=== PATIENT | female | born 1985 | race Caucasian/White ===

== ENCOUNTER 2020-10-04 17:47 | Emergency (ER) | payer SELFPAY ==
[2020-10-04 18:04] VITALS: TEMP 97.8
[2020-10-04] MEDS ORDERED: SODIUM CHLORIDE 0.9% 500 ML 500 ML IV STA (18:11)
[2020-10-04 18:47] LABS: Basophils % (A) 0 %; Eosinophils # (A) 0.1 k/uL (0-0.7); Eosinophils % (A) 1 %; HCT 37.1 % (34.0-46.0); Lymphocytes # (A) 1.5 k/uL (1.0-4.8); Lymphocytes % (A) 16 %; MCH 28.6 pg (25.0-35.0); MCHC 34.9 g/dL (31.0-37.0); MCV 81.8 fL (80.0-100.0); Mean Platelet Volume 6.7; Monocytes # (A) 0.3 k/uL (0-1.0); Monocytes % (A) 3 %; Neutrophils # (A) 7.4 k/uL (1.3-7.7); Neutrophils % (A) 79 %; Platelet Count 247 k/uL (150-450); RBC 4.54 m/uL (3.80-5.40); WBC 9.3 k/uL (3.8-10.6)
[2020-10-04 18:58] LABS: ALT 24 U/L (4-34); AST 29 U/L (14-36); African American GFR (CKD) >90 (>60 ml/min/1.73 sqM); Albumin 4.2 g/dL (3.5-5.0); Alkaline Phosphatase 53 U/L (38-126); Anion Gap 7 mmol/L; Blood Urea Nitrogen 19 mg/dL (7-17); Calcium 9.1 mg/dL (8.4-10.2); Carbon Dioxide 26 mmol/L (22-30); Chloride 104 mmol/L (98-107); Glucose 125 mg/dL (74-99); Non-African American GFR(CKD) >90 (>60 ml/min/1.73 sqM); Potassium 3.6 mmol/L (3.5-5.1); Sodium 137 mmol/L (137-145); Total Bilirubin 0.2 mg/dL (0.2-1.3); Total Protein 6.8 g/dL (6.3-8.2)
[2020-10-04] MEDS: DIPH,PERTUS(ACELL)TETVAC-LF 0.5 ML VIAL IM ONE ×2 (19:06→19:09)
[2020-10-04 19:12] VITALS: BP 118/81; PULSE 64; RESP 18
--- NOTE | 2020-10-04 19:17 | CT ---
EXAMINATION TYPE: CT facial bones wo con DATE OF EXAM: 10/04/2020 COMPARISON: None HISTORY: fall following syncopal episode CT DLP: 578.3 mGycm Automated exposure control for dose reduction was used. Images obtained from the bottom of the mandible to the top of the frontal sinuses with no contrast. The orbital margins are intact. I see no evidence of a blowout fracture. There is mucosal thickening in the maxillary sinuses. This is worse on the right side. There is patency of the ostiomeatal comple x bilaterally. I see no focal bone destruction. There is no evidence of retro-orbital mass. The maxilla is intact. Zygomatic arches appear normal. The nasal bone is intact. Zygomatic arches michael ear normal. There is normal aeration of the mastoid air cells. The mandibular ring is intact. Temporomandibular joints are intact. IMPRESSION: No evidence of a fracture. Maxillary sinusitis.
--- NOTE | 2020-10-04 19:20 | ED ---
Dizziness HPI - General Chief Complaint: Syncope Stated Complaint: syncope Time Seen by Provider: 10/04/20 18:06 Source: patient Mode of arrival: wheelchair Limitations: no limitations - History of Present Illness Initial Comments: Patient presents after syncopal episode. She did fall over and landed on her face. She sustained an injury to the nose. Patient states that this began after she dropped a knife, which landed on her left foot. She has no trouble walking. She currently has pain only in the nose. She has no neck pain or stiffness. She has no chest pain or shortness of breath. She has no lightheadedness or dizziness. She has no nausea or vomiting. - Related Data Allergies Allergy/AdvReac Type Severity Reaction Status Date / Time amoxicillin [From Augmentin] Allergy Unknown Verified 10/04/20 18:04 azithromycin Allergy Unknown Verified 10/04/20 18:04 clavulanic acid Allergy Unknown Verified 10/04/20 18:04 [From Augmentin] Review of Systems ROS Statement: Those systems with pertinent positive or pertinent negative responses have been documented in the HPI. ROS Other: All systems not noted in ROS Statement are negative. Past Medical History Past Medical History: No Reported History History of Any Multi-Drug Resistant Organisms: None Reported Past Surgical History: Section Past Psychological History: No Psychological Hx Reported Smoking Status: Vaper Past Alcohol Use History: Occasional Past Drug Use History: Marijuana General Exam Limitations: no limitations General appearance: alert, in no apparent distress Head exam: Present: atraumatic, normocephalic, normal inspection Eye exam: Present: normal appearance, PERRL, EOMI. Absent: scleral icterus, conjunctival injection, periorbital swelling ENT exam: Present: normal exam, mucous membranes moist Neck exam: Present: normal inspection. Absent: tenderness, meningismus, ly mphadenopathy Respiratory exam: Present: normal lung sounds bilaterally. Absent: respiratory distress, wheezes, rales, rhonchi, stridor Cardiovascular Exam: Present: regular rate, normal rhythm, normal heart sounds. Absent: systolic murmur, diastolic murmur, rubs, gallop, clicks GI/Abdominal exam: Present: soft, normal bowel sounds. Absent: distended, tenderness, guarding, rebound, rigid Extremities exam: Present: normal inspection, full ROM, normal capillary refill. Absent: tenderness, pedal edema, joint swelling, calf tenderness Back exam: Present: normal inspection Neurological exam: Present: alert, oriented X3, CN II-XII intact Psychiatric exam: Present: normal affect, normal mood Skin exam: Present: warm, dry, intact, normal color. Absent: rash Course Vital Signs 10/04/20 10/04/20 18:01 19:10 Temperature 97.8 F Pulse Rate 73 64 Respiratory 16 18 Rate Blood Pressure 116/75 118/81 O2 Sat by Pulse 100 99 Oximetry EKG Findings - EKG Comments: EKG Findings:: twelve-lead EKG shows ventricular rate 65 bpm, normal [place] interval and QRS complexes, no ST elevation or depression, interpreted by me as normal sinus rhythm. Medical Decision Making - Medical Decision Making Patient presents with a syncopal episode. She had a puncture wound to the left foot, so I updated her tetanus immunization. I recommended a left foot x-ray which the patient declined. She did land on her face, side obtained a CT there which is negative. Her labs are all normal. She is feeling better. She is stable for discharge. - Lab Data Result diagrams: 10/04/20 18:26 10/04/20 18:26 Lab Results 10/04/20 10/04/20 10/04/20 Range/Units 18:26 18:26 18:26 WBC 9.3 (3.8-10.6) k/uL RBC 4.54 (3.80-5.40) m/uL Hgb 13.0 (11.4-16.0) gm/dL Hct 37.1 (34.0-46.0) % MCV 81.8 (80.0-100.0) fL MCH 28.6 (25.0-35.0) pg MCHC 34.9 (31.0-37.0) g/dL RDW 12.0 (11.5-15.5) % Plt Count 247 (150-450) k/uL MPV 6.7 Neutrophils % 79 % Lymphocytes % 16 % Monocytes % 3 % Eosinophils % 1 % Basophils % 0 % Neutrophils # 7.4 (1.3-7.7) k/uL Lymphocytes # 1.5 (1.0-4.8) k/uL Monocytes # 0.3 (0-1.0) k/uL Eosinophils # 0.1 (0-0.7) k/uL Basophils # 0.0 (0-0.2) k/uL Sodium 137 (137-145) mmol/L Potassium 3.6 (3.5-5.1) mmol/L Chloride 104 (98-107) mmol/L Carbon Dioxide 26 (22-30) mmol/L Anion Gap 7 mmol/L BUN 19 H (7-17) mg/dL Creatinine 0.60 (0.52-1.04) mg/dL Est GFR (CKD-EPI)AfAm >90 (>60 ml/min/1.73 sqM) Est GFR (CKD-EPI)NonAf >90 (>60 ml/min/1.73 sqM) Glucose 125 H (74-99) mg/dL Calcium 9.1 (8.4-10.2) mg/dL Total Bilirubin 0.2 (0.2-1.3) mg/dL AST 29 (14-36) U/L ALT 24 (4-34) U/L Alkaline Phosphatase 53 (38-126) U/L Troponin I <0.012 (0.000-0.034) ng/mL Total Protein 6.8 (6.3-8.2) g/dL Albumin 4.2 (3.5-5.0) g/dL Disposition Clinical Impression: Vasovagal syncope Disposition: HOME SELF-CARE Instructions (If sedation given, give patient instructions): Syncope (ED) Is patient prescribed a controlled substance at d/c from ED?: No Referrals: None,Stated [Primary Care Provider] - 1-2 days
== END 2020-10-04 19:35 | disposition home or self-care (01) ==
LOC: EC 17:47
DX: R55 Syncope and collapse (principal); F17.290 Nicotine dependence, other tobacco product, uncomplicated; Z88.1 Allergy status to other antibiotic agents; Z88.0 Allergy status to penicillin
CPT/HCPCS: 36415; 70486; 80053; 84484; 85025; 90715; 93005; 99284

== ENCOUNTER 2021-04-04 20:46 | Emergency (ER) | payer OTHER ==
[2021-04-04 21:00] VITALS: BP 118/79; PULSE 89; RESP 20; TEMP 98.7
[2021-04-04 21:17] LABS: Basophils % (A) 1 %; Eosinophils # (A) 0.3 k/uL (0-0.7); Eosinophils % (A) 4 %; HCT 38.8 % (34.0-46.0); HGB 12.8 gm/dL (11.4-16.0); Lymphocytes # (A) 2.3 k/uL (1.0-4.8); Lymphocytes % (A) 29 %; MCH 28.1 pg (25.0-35.0); MCV 85.1 fL (80.0-100.0); Mean Platelet Volume 7.1; Monocytes # (A) 0.3 k/uL (0-1.0); Monocytes % (A) 4 %; Neutrophils # (A) 4.8 k/uL (1.3-7.7); Neutrophils % (A) 60 %; Platelet Count 277 k/uL (150-450); RBC 4.56 m/uL (3.80-5.40); RDW 12.2 % (11.5-15.5)
[2021-04-04 21:26] LABS: ALT 15 U/L (4-34); AST 16 U/L (14-36); African American GFR (CKD) >90 (>60 ml/min/1.73 sqM); Albumin 4.1 g/dL (3.5-5.0); Alkaline Phosphatase 47 U/L (38-126); Amylase 115 U/L (30-110); Anion Gap 10 mmol/L; Blood Urea Nitrogen 15 mg/dL (7-17); Calcium 9.4 mg/dL (8.4-10.2); Carbon Dioxide 25 mmol/L (22-30); Chloride 104 mmol/L (98-107); Glucose 119 mg/dL (74-99); Lipase 110 U/L (23-300); Non-African American GFR(CKD) >90 (>60 ml/min/1.73 sqM); Potassium 4.1 mmol/L (3.5-5.1); Sodium 139 mmol/L (137-145); Total Bilirubin 0.1 mg/dL (0.2-1.3)
[2021-04-04 21:31] LABS: Appearance,Urine Cloudy (Clear); Bacteria,Urine Rare /hpf; Bilirubin,Urine Negative (Negative); Blood,Urine Negative (Negative); Budding Yeast,Urine Moderate /hpf; Color,Urine Yellow; Glucose,Urine (UA) Negative (Negative); Ketones,Urine Negative (Negative); Leukocyte Esterase,Urine Negative (Negative); Mucus,Urine Rare /hpf; Nitrite,Urine Negative (Negative); PH, Urine 6.5 (5.0-8.0); Protein,Urine Negative (Negative); RBC,Urine 1 /hpf (0-5); Specific Gravity,Urine 1.018 (1.001-1.035); Squamous Epithelial Cell,Urine 14 /hpf (0-4); Urobilinogen,Urine <2.0 mg/dL (<2.0); WBC,Urine 3 /hpf (0-5)
--- NOTE | 2021-04-04 21:42 | XR ---
EXAMINATION TYPE: XR KUB DATE OF EXAM: 04/04/2021 COMPARISON: NONE HISTORY: Abdominal pain TECHNIQUE: Single view FINDINGS: Bowel gas pattern is normal. There is no sign of intestinal obstruction or pneumoperitoneum . Fecal pattern is normal. There is no evidence of a mass. There are no pathologic calcifications ove r the kidneys. IMPRESSION: Nonacute abdomen.
[2021-04-04] MEDS ORDERED: MAG HYDROX/AL HYDROX/SIMETH 30 ML, HYOSCYAMINE ELIXIR 10 ML, LIDOCAINE VISCOUS 2% 10 ML PO STA ×3 (22:33)
--- NOTE | 2021-04-04 22:34 | ED ---
Abdominal Pain HPI - General Chief Complaint: Abdominal Pain Stated Complaint: Pancreatitis Time Seen by Provider: 04/04/21 22:18 Source: patient, RN notes reviewed Mode of arrival: ambulatory Limitations: no limitations - History of Present Illness Initial Comments: 35-year-old female presents emergency dept with chief complaint of upper abdominal pain. Patient states started last couple days. Patient states the burning type pain, increasing reflux. Patient was seen at urgent care and told that she had pancreatitis. Patient states that she has no history of pancreatitis patient denies any dysuria hematuria no prior abdominal surgeries. Patient states her bowel into the normal no dysuria no hematuria. - Related Data Previous Rx's Medication Instructions Recorded Omeprazole [PriLOSEC] 20 mg PO AC-BRKFST #14 cap 04/04/21 Allergies Allergy/AdvReac Type Severity Reaction Status Date / Time amoxicillin [From Augmentin] Allergy Unknown Verified 04/04/21 21:00 azithromycin Allergy Unknown Verified 04/04/21 21:00 clavulanic acid Allergy Unknown Verified 04/04/21 21:00 [From Augmentin] Review of Systems ROS Statement: Those systems with pertinent positive or pertinent negative responses have been documented in the HPI. ROS Other: All systems not noted in ROS Statement are negative. Past Medical History Past Medical History: No Reported History History of Any Multi-Drug Resistant Organisms: None Reported Past Surgical History: Section Past Psychological History: No Psychological Hx Reported Smoking Status: Vaper Past Alcohol Use History: Occasional Past Drug Use History: Marijuana General Exam Limitations: no limitations General appearance: alert, in no apparent distress Head exam: Present: atraumatic, normocephalic, normal inspection Eye exam: Present: normal appearance, PERRL, EOMI. Absent: scleral icterus, conjunctival injection, periorbital swelling Neck exam: Present: normal inspection, full ROM. Absent: tenderness, meningismus, lymphadenopathy Respiratory exam: Present: normal lung sounds bilaterally. Absent: respiratory distress, wheezes, rales, rhonchi, stridor Cardiovascular Exam: Present: regular rate, normal rhythm, normal heart sounds. Absent: systolic murmur, diastolic murmur, rubs, gallop, clicks GI/Abdominal exam: Present: soft, tenderness (Epigastric), normal bowel sounds. Absent: distended, guarding, rebound, rigid Course Vital Signs 04/04/21 20:56 Temperature 98.7 F Pulse Rate 89 Respiratory 20 Rate Blood Pressure 118/79 O2 Sat by Pulse 98 Oximetry Medical Decision Making - Lab Data Result diagrams: 04/04/21 21:07 04/04/21 21:07 Lab Results 04/04/21 04/04/21 04/04/21 Range/Units 21:07 21:07 21:20 WBC 8.0 (3.8-10.6) k/uL RBC 4.56 (3.80-5.40) m/uL Hgb 12.8 (11.4-16.0) gm/dL Hct 38.8 (34.0-46.0) % MCV 85.1 (80.0-100.0) fL MCH 28.1 (25.0-35.0) pg MCHC 33.0 (31.0-37.0) g/dL RDW 12.2 (11.5-15.5) % Plt Count 277 (150-450) k/uL MPV 7.1 Neutrophils % 60 % Lymphocytes % 29 % Monocytes % 4 % Eosinophils % 4 % Basophils % 1 % Neutrophils # 4.8 (1.3-7.7) k/uL Lymphocytes # 2.3 (1.0-4.8) k/uL Monocytes # 0.3 (0-1.0) k/uL Eosinophils # 0.3 (0-0.7) k/uL Basophils # 0.0 (0-0.2) k/uL Sodium 139 (137-145) mmol/L Potassium 4.1 (3.5-5.1) mmol/L Chloride 104 (98-107) mmol/L Carbon Dioxide 25 (22-30) mmol/L Anion Gap 10 mmol/L BUN 15 (7-17) mg/dL Creatinine 0.57 (0.52-1.04) mg/dL Est GFR (CKD-EPI)AfAm >90 (>60 ml/min/1.73 sqM) Est GFR (CKD-EPI)NonAf >90 (>60 ml/min/1.73 sqM) Glucose 119 H (74-99) mg/dL Calcium 9.4 (8.4-10.2) mg/dL Total Bilirubin 0.1 L (0.2-1.3) mg/dL AST 16 (14-36) U/L ALT 15 (4-34) U/L Alkaline Phosphatase 47 (38-126) U/L Total Protein 7.0 (6.3-8.2) g/dL Albumin 4.1 (3.5-5.0) g/dL Amylase 115 H (30-110) U/L Lipase 110 (23-300) U/L Urine Color Yellow Urine Appearance Cloudy H (Clear) Urine pH 6.5 (5.0-8.0) Ur Specific [place] 1.018 (1.001-1.035) Urine Protein Negative (Negative) Urine Glucose (UA) Negative (Negative) Urine Ketones Negative (Negative) Urine Blood Negative (Negative) Urine Nitrite Negative (Negative) Urine Bilirubin Negative (Negative) Urine Urobilinogen <2.0 (<2.0) mg/dL Ur Leukocyte Esterase Negative (Negative) Urine RBC 1 (0-5) /hpf Urine WBC 3 (0-5) /hpf Ur Squamous Epith Cells 14 H (0-4) /hpf Urine Bacteria Rare H (None) /hpf Urine Mucus Rare H (None) /hpf Urine Yeast (Budding) Moderate H (None) /hpf Urine HCG, Qual (Not Detectd) 04/04/21 Range/Units 21:21 WBC (3.8-10.6) k/uL RBC (3.80-5.40) m/uL Hgb (11.4-16.0) gm/dL Hct (34.0-46.0) % MCV (80.0-100.0) fL MCH (25.0-35.0) pg MCHC (31.0-37.0) g/dL RDW (11.5-15.5) % Plt Count (150-450) k/uL MPV Neutrophils % % Lymphocytes % % Monocytes % % Eosinophils % % Basophils % % Neutrophils # (1.3-7.7) k/uL Lymphocytes # (1.0-4.8) k/uL Monocytes # (0-1.0) k/uL Eosinophils # (0-0.7) k/uL Basophils # (0-0.2) k/uL Sodium (137-145) mmol/L Potassium (3.5-5.1) mmol/L Chloride (98-107) mmol/L Carbon Dioxide (22-30) mmol/L Anion Gap mmol/L BUN (7-17) mg/dL Creatinine (0.52-1.04) mg/dL Est GFR (CKD-EPI)AfAm (>60 ml/min/1.73 sqM) Est GFR (CKD-EPI)NonAf (>60 ml/min/1.73 sqM) Glucose (74-99) mg/dL Calcium (8.4-10.2) mg/dL Total Bilirubin (0.2-1.3) mg/dL AST (14-36) U/L ALT (4-34) U/L Alkaline Phosphatase (38-126) U/L Total Protein (6.3-8.2) g/dL Albumin (3.5-5.0) g/dL Amylase (30-110) U/L Lipase (23-300) U/L Urine Color Urine Appearance (Clear) Urine pH (5.0-8.0) Ur Specific [place] (1.001-1.035) Urine Protein (Negative) Urine Glucose (UA) (Negative) Urine Ketones (Negative) Urine Blood (Negative) Urine Nitrite (Negative) Urine Bilirubin (Negative) Urine Urobilinogen (<2.0) mg/dL Ur Leukocyte Esterase (Negative) Urine RBC (0-5) /hpf Urine WBC (0-5) /hpf Ur Squamous Epith Cells (0-4) /hpf Urine Bacteria (None) /hpf Urine Mucus (None) /hpf Urine Yeast (Budding) (None) /hpf Urine HCG, Qual Not Detected (Not Detectd) Disposition Clinical Impression: Abdominal pain Disposition: HOME SELF-CARE Condition: Stable Instructions (If sedation given, give patient instructions): Abdominal Pain (ED) Additional Instructions: Please return to the Emergency Department if symptoms worsen or any other concerns. Prescriptions: Omeprazole [PriLOSEC] 20 mg PO AC-BRKFST #14 cap Is patient prescribed a controlled substance at d/c from ED?: No Referrals: None,Stated [Primary Care Provider] - 1-2 days Time of Disposition: 22:45
[2021-04-04] MEDS ORDERED: ONDANSETRON 4 MG/2 ML VIAL IVP STA (22:44)
[2021-04-04] MEDS ORDERED: HYDROmorphone 0.5 MG/0.5 ML SYRINGE IVP STA (22:44)
[2021-04-04] MEDS ORDERED: ACET/COD 300 MG/30 MG STARTER PACK 6 TAB BTL PO PRN (23:40)
[2021-04-04] MEDS ORDERED: ACET/COD 300 MG/30 MG STARTER PACK 6 TAB BTL PO ONE (23:40)
--- NOTE | 2021-04-05 04:10 | CT ---
EXAM: CT Abdomen and Pelvis With Intravenous Contrast CLINICAL HISTORY: abd pain, hx of pancreatitis TECHNIQUE: Axial computed tomography images of the abdomen and pelvis with intravenous contrast. CTDI is 15.97 mGy and DLP is 655.5 mGy-cm. This CT exam was performed using one or more of the following dose reduction techniques: automated exposure control, adjustment of the mA and/or kV according to patient size, and/or use of iterative reconstruction technique. COMPARISON: No relevant prior studies available. FINDINGS: Lung bases: Dependent atelectasis. ABDOMEN: Liver: Borderline hepatomegaly. Gallbladder and bile ducts: Unremarkable. Pancreas: Unremarkable. Spleen: Unremarkable. Adrenals: Unremarkable. Kidneys and ureters: Unremarkable. Stomach and bowel: Unremarkable. PELVIS: Appendix: Appendix is unremarkable. Bladder: Unremarkable. Reproductive: Unremarkable as visualized. ABDOMEN and PELVIS: Intraperitoneal space: Unremarkable. Bones/joints: No acute fracture. No dislocation. Soft tissues: Unremarkable. Vasculature: Unremarkable. Lymph nodes: Unremarkable. IMPRESSION: No acute findings in the abdomen or pelvis.
== END 2021-04-05 00:18 | disposition home or self-care (01) ==
LOC: EC 20:46
DX: R10.10 Upper abdominal pain, unspecified (principal); F17.290 Nicotine dependence, other tobacco product, uncomplicated; Z88.1 Allergy status to other antibiotic agents; Z88.0 Allergy status to penicillin
CPT/HCPCS: 36415; 80053; 82150; 83690; 85025; 81001; 81025; 74018; 99284; 96374; 96375; J2405; J1170; 12002; 74177

== ENCOUNTER 2022-04-04 09:21 | Observation (INO) | payer BC, OTHER ==
[2022-04-04] MEDS ORDERED: ACETAMINOPHEN TAB 325 MG TAB PO STA (09:43)
[2022-04-04] MEDS ORDERED: SODIUM CHLORIDE 0.9% 500 ML 500 ML IV STA (09:43)
--- NOTE | 2022-04-04 09:50 | ED ---
Female Urogenital HPI - General Chief complaint: Urogenital Stated complaint: urogenital Time Seen by Provider: 04/04/22 09:27 Source: patient, RN notes reviewed, old records reviewed Mode of arrival: ambulatory Limitations: no limitations - History of Present Illness Initial comments: This is a nontoxic appearing 36-year-old female that presents to the emergency room with complaints of dysuria, right lower abdominal pain and vaginal bleeding. Patient states that she was hospitalized for these same symptoms at [facility] last week for 3 days for urinary tract infection. She states she is 6 weeks however they were unable to determine the location of the . They told her they believe she has a kidney stone which was causing her discomfort. Patient states that she's continued to have intermittent vaginal bleeding with hematuria with worsening pain. She did finish the antibiotics that were prescribed at discharge. 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 She also has a history of mu ltiple kidney stones. She has an appointment with her BERRY PICKER scheduled first week of April, a high risk doctor. She was not given referral to urology but has been straining her urine with no evidence of stone. MD Complaint: vaginal bleeding, dysuria, pelvic pain -: week(s) (2) Location: suprapubic Radiation: R flank, other (right groin) Severity scale (1-10): 6 Quality: sharp Consistency: constant Improves with: none Patient : Yes - Related Data Home Medications Medication Instructions Recorded Confirmed Acetaminophen-Codeine 300-30mg 2 tab PO Q6H PRN 04/04/22 04/04/22 [Tylenol w/codeine #3] Progesterone, Micronized 200 mg PO DAILY 04/04/22 04/04/22 [Progesterone] Tamsulosin HCl [Flomax] 0.4 mg PO DAILY 04/04/22 04/04/22 ondansetron HCL [Zofran] 8 mg PO Q8H PRN 04/04/22 04/04/22 Allergies Allergy/AdvReac Type Severity Reaction Status Date / Time amoxicillin [From Augmentin] Allergy Unknown Verified 04/04/22 12:15 azithromycin Allergy Unknown Verified 04/04/22 12:15 clavulanic acid Allergy Unknown Verified 04/04/22 12:15 [From Augmentin] latex Allergy Swelling Verified 04/04/22 12:15 Review of Systems ROS Statement: Those systems with pertinent positive or pertinent negative responses have been documented in the HPI. ROS Other: All systems not noted in ROS Statement are negative. Past Medical History Past Medical History: No Reported History History of Any Multi-Drug Resistant Organisms: None Reported Past Surgical History: Section Past Psychological History: No Psychological Hx Reported Smoking Status: Vaper Past Alcohol Use History: Occasional Past Drug Use History: Marijuana General Exam Limitations: no limitations General appearance: alert, in no apparent distress Head exam: Present: atraumatic Eye exam: Absent: scleral icterus, conjunctival injection, periorbital swelling ENT exam: Present: mucous membranes moist Neck exam: Present: full ROM Respiratory exam: Present: normal lung sounds bilaterally. Absent: respiratory distress, wheezes, rales, rhonchi, stridor, chest wall tenderness, accessory muscle use Cardiovascular Exam: Present: tachycardia GI/Abdominal exam: Present: soft. Absent: distended, tenderness, rigid External exam: Present: normal external exam. Absent: erythema, swelling, lacerations, ecchymosis Speculum exam: Present: vaginal bleeding. Absent: cervical discharge, foreign body, tissue, laceration By manual exam: Present: normal by manual exam, adnexal tenderness (right). Absent: cervical motion tenderness Extremities exam: Present: normal capillary refill. Absent: pedal edema Back exam: Absent: CVA tenderness (R), CVA tenderness (L), rash noted Neurological exam: Present: alert, oriented X3 Psychiatric exam: Present: normal affect, normal mood Skin exam: Present: warm, dry. Absent: cyanosis, pallor Course Vital Signs 04/04/22 04/04/22 04/04/22 09:21 12:12 12:18 Temperature 98.3 F 98 F 98.9 F Pulse Rate 103 H 71 Pulse Rate [ 91 Pulse Oximetery ] Respiratory 18 16 16 Rate Blood Pressure 114/65 128/78 Blood Pressure 115/62 [Left Arm] O2 Sat by Pulse 99 98 99 Oximetry - Reevaluation(s) Reevaluation #1: 04/04/22 11:19 Dr. Manrique radiologist that confirms a right ectopic . Dr. Ash turcios. Time: 11:19 Reevaluation #2: 04/04/22 11:[address] Aleman regarding ultrasound results showing ectopic . States that she will be in to take patient to surgery. Time: 11:27 Medical Decision Making - Medical Decision Making Labs brought by patient from [facility] dated March 28 show HCG 800. Patient's presenting with continued right-sided abdominal/groin pain with vaginal bleeding. States feels like her previous ectopic pregnancies. Patient is a . Last ectopic treated with methotrexate [address] [facility]. She has had a successful since and has a 3-year-old and a 7-year-old child. Hemoglobin 12.9, hematocrit 36.6. HCG 5055. Ultrasound interpreted by me shows evidence of an ectopic in the right adnexa. Dr. Manrique the radiologist did confirm a live right-sided ectopic presumed within the fallopian tube with a heart rate of 116. Mean crown-rump length 0.5 cm corresponding to 6 week 2 day old fetus. No free fluid in the cul-de-sac. No gestational sac or yolk sac or pole at this time. I did speak with Dr. Aleman regarding ectopic and states she will come in to see patient with likely OR intervention. Patient was notified of the results. Patient was given multiple doses of pain medication. Second IV was ordered. Vital signs are stable. Records were eventually obtained from [facility] from her visit on March 27, their impression by ultrasound was no evidence of intrauterine , findings could be due to early IUP, nonvisualized ectopic or missed . Fluid is seen within the posterior cul-de-sac. Case discussed with Dr. Lei. - Lab Data Result diagrams: 04/04/22 10:11 04/04/22 10:11 Lab Results 04/04/22 04/04/22 04/04/22 Range/Units 10:11 10:11 10:11 WBC 8.7 (3.8-10.6) k/uL RBC 4.45 (3.80-5.40) m/uL Hgb 12.9 (11.4-16.0) gm/dL Hct 36.6 (34.0-46.0) % MCV 82.3 (80.0-100.0) fL MCH 29.0 (25.0-35.0) pg MCHC 35.3 (31.0-37.0) g/dL RDW 12.4 (11.5-15.5) % Plt Count 231 (150-450) k/uL MPV 7.3 Neutrophils % 79 % Lymphocytes % 13 % Monocytes % 4 % Eosinophils % 2 % Basophils % 0 % Neutrophils # 6.9 (1.3-7.7) k/uL Lymphocytes # 1.2 (1.0-4.8) k/uL Monocytes # 0.3 (0-1.0) k/uL Eosinophils # 0.2 (0-0.7) k/uL Basophils # 0.0 (0-0.2) k/uL Sodium (137-145) mmol/L Potassium (3.5-5.1) mmol/L Chloride (98-107) mmol/L Carbon Dioxide (22-30) mmol/L Anion Gap mmol/L BUN (7-17) mg/dL Creatinine (0.52-1.04) mg/dL Est GFR (CKD-EPI)AfAm (>60 ml/min/1.73 sqM) Est GFR (CKD-EPI)NonAf (>60 ml/min/1.73 sqM) Glucose (74-99) mg/dL Calcium (8.4-10.2) mg/dL Total Bilirubin (0.2-1.3) mg/dL AST (14-36) U/L ALT (4-34) U/L Alkaline Phosphatase (38-126) U/L Lactate Dehydrogenase (313-618) U/L Total Protein (6.3-8.2) g/dL Albumin (3.5-5.0) g/dL Amylase (30-110) U/L Lipase (23-300) U/L HCG, Quant mIU/mL Urine Color Light Yellow Urine Appearance Cloudy H (Clear) Urine pH 6.0 (5.0-8.0) Ur Specific [place] 1.008 (1.001-1.035) Urine Protein Negative (Negative) Urine Glucose (UA) Negative (Negative) Urine Ketones Negative (Negative) Urine Blood Large H (Negative) Urine Nitrite Negative (Negative) Urine Bilirubin Negative (Negative) Urine Urobilinogen <2.0 (<2.0) mg/dL Ur Leukocyte Esterase Negative (Negative) Urine RBC 1 (0-5) /hpf Urine WBC 2 (0-5) /hpf Ur Squamous Epith Cells 6 H (0-4) /hpf Urine Bacteria Rare H (None) /hpf Urine Mucus Rare H (None) /hpf Urine HCG, Qual Detected (Not Detectd) 04/04/22 Range/Units 10:11 WBC (3.8-10.6) k/uL RBC (3.80-5.40) m/uL Hgb (11.4-16.0) gm/dL Hct (34.0-46.0) % MCV (80.0-100.0) fL MCH (25.0-35.0) pg MCHC (31.0-37.0) g/dL RDW (11.5-15.5) % Plt Count (150-450) k/uL MPV Neutrophils % % Lymphocytes % % Monocytes % % Eosinophils % % Basophils % % Neutrophils # (1.3-7.7) k/uL Lymphocytes # (1.0-4.8) k/uL Monocytes # (0-1.0) k/uL Eosinophils # (0-0.7) k/uL Basophils # (0-0.2) k/uL Sodium 137 (137-145) mmol/L Potassium 4.5 (3.5-5.1) mmol/L Chloride 106 (98-107) mmol/L Carbon Dioxide 22 (22-30) mmol/L Anion Gap 9 mmol/L BUN 13 (7-17) mg/dL Creatinine 0.51 L (0.52-1.04) mg/dL Est GFR (CKD-EPI)AfAm >90 (>60 ml/min/1.73 sqM) Est GFR (CKD-EPI)NonAf >90 (>60 ml/min/1.73 sqM) Glucose 162 H (74-99) mg/dL Calcium 8.7 (8.4-10.2) mg/dL Total Bilirubin 0.6 (0.2-1.3) mg/dL AST 23 (14-36) U/L ALT 41 H (4-34) U/L Alkaline Phosphatase 52 (38-126) U/L Lactate Dehydrogenase 493 (313-618) U/L Total Protein 6.6 (6.3-8.2) g/dL Albumin 3.9 (3.5-5.0) g/dL Amylase 53 (30-110) U/L Lipase 132 (23-300) U/L HCG, Quant 5055.1 mIU/mL Urine Color Urine Appearance (Clear) Urine pH (5.0-8.0) Ur Specific [place] (1.001-1.035) Urine Protein (Negative) Urine Glucose (UA) (Negative) Urine Ketones (Negative) Urine Blood (Negative) Urine Nitrite (Negative) Urine Bilirubin (Negative) Urine Urobilinogen (<2.0) mg/dL Ur Leukocyte Esterase (Negative) Urine RBC (0-5) /hpf Urine WBC (0-5) /hpf Ur Squamous Epith Cells (0-4) /hpf Urine Bacteria (None) /hpf Urine Mucus (None) /hpf Urine HCG, Qual (Not Detectd) Critical Care Time Critical Care Time: Yes (32) Disposition Clinical Impression: Ectopic Disposition: ADMITTED IP TO THIS [facility] Referrals: None,Stated [Primary Care Provider] - 1-2 days Decision Date: 04/04/22 Decision Time: 11:42
[2022-04-04 10:21] LABS: Basophils % (A) 0 %; Eosinophils # (A) 0.2 k/uL (0-0.7); Eosinophils % (A) 2 %; HCT 36.6 % (34.0-46.0); HGB 12.9 gm/dL (11.4-16.0); Lymphocytes # (A) 1.2 k/uL (1.0-4.8); Lymphocytes % (A) 13 %; MCHC 35.3 g/dL (31.0-37.0); MCV 82.3 fL (80.0-100.0); Mean Platelet Volume 7.3; Monocytes # (A) 0.3 k/uL (0-1.0); Monocytes % (A) 4 %; Neutrophils # (A) 6.9 k/uL (1.3-7.7); Neutrophils % (A) 79 %; Platelet Count 231 k/uL (150-450); RBC 4.45 m/uL (3.80-5.40); RDW 12.4 % (11.5-15.5); WBC 8.7 k/uL (3.8-10.6)
[2022-04-04 10:26] LABS: Appearance,Urine Cloudy (Clear); Bacteria,Urine Rare /hpf; Bilirubin,Urine Negative (Negative); Blood,Urine Large (Negative); Color,Urine Light Yellow; Glucose,Urine (UA) Negative (Negative); Ketones,Urine Negative (Negative); Leukocyte Esterase,Urine Negative (Negative); Mucus,Urine Rare /hpf; Nitrite,Urine Negative (Negative); Protein,Urine Negative (Negative); RBC,Urine 1 /hpf (0-5); Specific Gravity,Urine 1.008 (1.001-1.035); Squamous Epithelial Cell,Urine 6 /hpf (0-4); Urobilinogen,Urine <2.0 mg/dL (<2.0); WBC,Urine 2 /hpf (0-5)
[2022-04-04 10:37] LABS: ALT 41 U/L (4-34); African American GFR (CKD) >90 (>60 ml/min/1.73 sqM); Albumin 3.9 g/dL (3.5-5.0); Amylase 53 U/L (30-110); Anion Gap 9 mmol/L; Blood Urea Nitrogen 13 mg/dL (7-17); Calcium 8.7 mg/dL (8.4-10.2); Carbon Dioxide 22 mmol/L (22-30); Chloride 106 mmol/L (98-107); Glucose 162 mg/dL (74-99); LDH 493 U/L (313-618); Lipase 132 U/L (23-300); Non-African American GFR(CKD) >90 (>60 ml/min/1.73 sqM); Sodium 137 mmol/L (137-145); Total Bilirubin 0.6 mg/dL (0.2-1.3); Total Protein 6.6 g/dL (6.3-8.2)
[2022-04-04 10:38] LABS: Potassium 4.5 mmol/L (3.5-5.1)
[2022-04-04 10:39] LABS: AST 23 U/L (14-36); Alkaline Phosphatase 52 U/L (38-126)
[2022-04-04 10:52] LABS: HCG,Quantitative Serum 5055.1 mIU/mL
[2022-04-04] MEDS ORDERED: MORPHINE SULFATE 4 MG/ML SYRINGE IVP STA ×2 (11:02→11:26)
[2022-04-04] MEDS ORDERED: SODIUM CHLORIDE 0.9% 500 ML 500 ML IV ONE (11:04)
[2022-04-04] MEDS ORDERED: SODIUM CHLORIDE 0.9% 1,000 ML IV SCH (11:15)
--- NOTE | 2022-04-04 11:18 | US ---
EXAMINATION TYPE: Transabdominal DATE OF EXAM: 04/04/2022 10:47 AM COMPARISON: NONE CLINICAL HISTORY: r/o ectopic. UTI. Vaginal bleeding. right pelvic pain. Positive beta hCG test. Hist ory of ectopic . EXAM PERFORMED: Transvaginal (TV) and Transabdominal (TA) EXAM MEASUREMENTS: GESTATIONAL AGE / DATING Physician Established: Not yet established Dates by LMP: (7 weeks/0 days) EDC: 11/21/22 Dates by First Scan: No previous this is first scan Dates by Current Scan for: (6 weeks/2 days) - right adnexa EDC: 11/26/22 MATERNAL ANATOMY Uterus: 8.4 x 4.4 x 5.5cm Right Ovary: 3.5 x 2.7 x 1.7cm Left Ovary: 3.1 x 1.4 x 1.4cm Post CDS / Adnexa: mass-like area right adnexa = 2.9 x 1.9 x 2.5cm with yolk sac and pole ident ified - suggestive of ectopic Presence of free fluid: no GESTATION / SURVEY LOCATED WITHIN RIGHT ADNEXAL MASS CRL: 0.5cm (6 weeks/2 days) Yolk Sac (normal less than 6mm): 0.3cm Heart Rate: 116 bpm Rhythm: Normal IUP: Viable IUP Date of LMP: 02/14/22 Beta HcG (if available): Not available at this time Heterogeneous anteverted uterus with thickened endometrium up to 13 mm. No gestational sac, yolk sac, or pole at this level. No free fluid in pelvic cul-de-sac. Both ovaries are identified. Within the right adnexa and there is documentation of single live intrau terine gestation as gestational sac, yolk sac, pole are present. Mean crown-rump length is 0.5 cm corresponding to 6 week 2 day old fetus. IMPRESSION: Confirmation of live right-sided ectopic presumed within the fallopian tube as detailed above. Critical results communicated to ordering ER physician via telephone at time of dictation.
--- NOTE | 2022-04-04 12:09 | P.HPOB ---
History of Present Illness H&P Date: 04/04/22 Chief Complaint: ectopic 36-year-old G 17 P2 presents with a 6 week gestational sac in her right fallopian tube. She presented to the emergency room complaining of right lower quadrant pain and spotting. Beta hCG is 5000 and irises 6 week gestational sac with a pole noted. Patient has had an ectopic in this fallopian tube before and was treated with methotrexate. I consented the patient for a laparoscopic salpingectomy and removal of ectopic . Review of Systems All systems: negative Constitutional: Denies chills, Denies fever Eyes: denies blurred vision, denies pain Ears, nose, mouth and throat: Denies headache, Denies sore throat Cardiovascular: Denies chest pain, Denies shortness of breath Respiratory: Denies cough Gastrointestinal: Denies abdominal pain, Denies diarrhea, Denies nausea, Denies vomiting Genitourinary: Denies dysuria, Denies hematuria Musculoskeletal: Denies myalgias Integumentary: Denies pruritus, Denies rash Neurological: Denies numbness, Denies weakness Psychiatric: Denies anxiety, Denies depression Endocrine: Denies fatigue, Denies weight change Past Medical History Past Medical History: No Reported History Additional Past Medical History / Comment(s): Obstetric history: She's had 2 live births, she's had one ectopic in the right fallopian tube for which she was treated with methotrexate. She also had a molar and a 17 week demise as well as several miscarriages. History of Any Multi-Drug Resistant Organisms: None Reported Past Surgical History: Section Past Psychological History: No Psychological Hx Reported Smoking Status: Vaper Past Alcohol Use History: Occasional Past Drug Use History: Marijuana Medications and Allergies Home Medications Medication Instructions Recorded Confirmed Type Omeprazole [PriLOSEC] 20 mg PO AC-BRKFST #14 cap 04/04/21 Rx Allergies Allergy/AdvReac Type Severity Reaction Status Date / Time amoxicillin [From Augmentin] Allergy Unknown Verified 04/04/22 12:05 azithromycin Allergy Unknown Verified 04/04/22 12:05 clavulanic acid Allergy Unknown Verified 04/04/22 12:05 [From Augmentin] latex Allergy Swelling Verified 04/04/22 12:05 Exam Osteopathic Statement: *. No significant issues noted on an osteopathic structural exam other than those noted in the History and Physical/Consult. Vital Signs Temp Pulse Resp BP Pulse Ox 04/04/22 09:21 98.3 F 103 H 18 114/65 99 Intake and Output 04/03/22 04/04/22 04/04/22 22:59 06:59 14:59 Other: Weight 61.689 kg Heart: Regular rate and rhythm Lungs: Clear to auscultation bilaterally Abdomen: Soft, very tender on the right lower quadrant, minimally distended Extremities: Negative Homans sign Results Result Diagrams: 04/04/22 10:11 04/04/22 10:11 Abnormal Lab Results - Last 24 Hours (Table) 04/04/22 04/04/22 Range/Units 10:11 10:11 Creatinine 0.51 L (0.52-1.04) mg/dL Glucose 162 H (74-99) mg/dL ALT 41 H (4-34) U/L Urine Appearance Cloudy H (Clear) Urine Blood Large H (Negative) Ur Squamous Epith Cells 6 H (0-4) /hpf Urine Bacteria Rare H (None) /hpf Urine Mucus Rare H (None) /hpf Assessment and Plan (1) Ectopic Current Visit: Yes Status: Acute Code(s): O00.90 - UNSPECIFIED ECTOPIC WITHOUT INTRAUTERINE SNOMED Code(s): 26465991 Plan: 1. Laparoscopic salpingectomy with removal of ectopic and possible laparotomy
[2022-04-04] MEDS ORDERED: IV FLUID CONTINUATION 500 ML IV ONE (12:20)
[2022-04-04] MEDS ORDERED: ROCURONIUM 10 MG/ML (5 ML VIAL) IV ONE (12:27)
[2022-04-04] MEDS ORDERED: PROPOFOL 10 MG/ML 20 ML VIAL IV ONE (12:27)
[2022-04-04] MEDS ORDERED: ONDANSETRON 4 MG/2 ML VIAL ONE (12:27)
[2022-04-04] MEDS ORDERED: NEOSTIGMINE 1 MG/ML 10 ML VIAL ONE (12:27)
[2022-04-04] MEDS ORDERED: SUCCINYLCHOLINE CHLORIDE 200 MG/10 ML VIAL IV ONE (12:27)
[2022-04-04] MEDS ORDERED: MIDAZOLAM 2 MG/2 ML VIAL ONE (12:27)
[2022-04-04] MEDS ORDERED: DEXAMETHASONE SOD PHOSPHATE 10 MG/ML 1 ML VIAL ONE (12:27)
[2022-04-04] MEDS ORDERED: GLYCOPYRROLATE 0.2 MG/ML 2 ML VIAL ONE (12:27)
[2022-04-04] MEDS ORDERED: fentaNYL (PF) 50 MCG/ML 2 ML AMP ONE (12:27)
[2022-04-04] MEDS ORDERED: KETOROLAC 15 MG/ML 1 ML VIAL ONE (12:27)
[2022-04-04] MEDS ORDERED: LIDOCAINE 2% INJ 20 MG/ML (2 ML VIAL) ONE (12:27)
[2022-04-04] MEDS ORDERED: NALOXONE 0.4 MG/ML 1 ML VIAL IV PRN (12:29)
[2022-04-04] MEDS ORDERED: SODIUM CHLORIDE 0.9% 50 ML with ceFAZolin 2,000 MG IV ONE ×2 (12:44)
[2022-04-04] MEDS ORDERED: BUPIVACAINE (PF) 0.25% 30 ML VIAL SQ ONE ×2 (12:48)
[2022-04-04] MEDS ORDERED: LACTATED RINGERS 1,000 ML IV ONE (13:05)
[2022-04-04] MEDS ORDERED: HYDROmorphone 0.5 MG/0.5 ML SYRINGE IVP ONE (13:33)
[2022-04-04 14:27] VITALS: RESP 16
[2022-04-04 15:27] LABS: Appearance,Urine Clear (Clear); Bilirubin,Urine Negative (Negative); Blood,Urine Negative (Negative); Color,Urine Colorless; Glucose,Urine (UA) Negative (Negative); Ketones,Urine Negative (Negative); Leukocyte Esterase,Urine Negative (Negative); Nitrite,Urine Negative (Negative); Protein,Urine Negative (Negative); Specific Gravity,Urine 1.009 (1.001-1.035); Urobilinogen,Urine <2.0 mg/dL (<2.0)
[2022-04-04] MEDS ORDERED: IBUPROFEN 800 MG TAB PO PRN (17:01)
[2022-04-04] MEDS ORDERED: HYDROcodone/APAP 7.5-325MG 1 EACH TAB PO PRN (17:01)
--- NOTE | 2022-04-04 17:07 | P.OP ---
Date of Procedure: 04/04/22 Preoperative Diagnosis: 1. Ectopic in the right fallopian tube Postoperative Diagnosis: 1. Ruptured ectopic in the right fallopian tube Procedure(s) Performed: Laparoscopic right salpingectomy and removal of ectopic Anesthesia: RAMY Surgeon: Jaquelin Aleman Estimated Blood Loss (ml): 3 IV fluids (ml): 1,000 Urine output (ml): 100 Pathology: other (Segment of right fallopian tube with ectopic) Condition: stable Disposition: PACU Operative Findings: Ectopic in the right fallopian tube and minimal blood in the pelvis there was a small hole in the right fallopian tube but no active bleeding. Description of Procedure: Patient is taken the operating room and general anesthesia was obtained without difficulty. She prepped draped in normal sterile fashion dorsal lithotomy position, legs placed in the Filiberto stirrups. Bladder was drained of all urine. Weighted speculum place in vagina and the anterior lip of cervix was grasped with tooth tenaculum. Uterus was sounded to 9 cm. The kroner manipulator was then placed. Attention was then turned to the abdomen and gloves were changed. A 10 mm and for local incision was made with scalpel and 10 mm optical trocar was placed under direct visualization. A 10 mm suprapubic incision was made with scalpel and a 10 mm optical trocar was placed under direct visualization. Survey of the pelvis revealed normal appearing uterus normal left fallopian tube and ovary the right fallopian tube was engorged and inflamed with a small hole that did have blood on it but was not actively bleeding, normal right ovary. A 5 mm incision was made in the right lower quadrant and a optical trocar was placed under direct visualization. The fallopian tube was grasped with a grasper and the LigaSure was used to clamp seal and cut the mesosalpinx to remove the fallopian tube. The fallopian tubes and placement 10 bag and pulled through the suprapubic incision. Hemostasis was assured. All instruments were removed from the abdomen and pelvis. The incisions were closed with 4-0 Vicryl subcu cuticular fashion. Patient procedure well, sponge initial counts correct 2. She was taken to recovery in stable condition.
[2022-04-04 17:21] VITALS: TEMP 97.8
[2022-04-04 17:40] VITALS: BP 115/68; PULSE 73
== END 2022-04-04 18:40 | disposition home or self-care (01) ==
LOC: EC 09:21 → 6NMEDSUR 12:43 → 4FBP 13:36
PROVIDERS: ADMIT Obstetrics & Gynecology; ATTEND Obstetrics & Gynecology
DX: O00.101 Right tubal pregnancy without intrauterine pregnancy (principal); O23.41 Unspecified infection of urinary tract in pregnancy, first trimester; N39.0 Urinary tract infection, site not specified; Z87.442 Personal history of urinary calculi; Z79.899 Other long term (current) drug therapy; Z88.1 Allergy status to other antibiotic agents; Z91.040 Latex allergy status; Z32.01 Encounter for pregnancy test, result positive; Z3A.01 Less than 8 weeks gestation of pregnancy
CPT/HCPCS: 96376; 96361; 96374; 99291; 36415; 86900; 86901; 88305; 80053; 82150; 83615; 83690; 85025; 86850; 81003; 81001; 81025; 84702; 87086; 76801; 76817; 59151; G0378 ×2; J2250; J0330; J2270; J1100; J2710; J2405; J0690; J3010; J1885; J2704; J1170; J1790; J2001

== ENCOUNTER 2022-10-20 11:09 | Emergency (ER) | payer OTHER ==
[2022-10-20 11:13] VITALS: TEMP 98
[2022-10-20] MEDS ORDERED: SODIUM CHLORIDE 0.9% 1,000 ML IV STA (11:17)
[2022-10-20] MEDS ORDERED: ONDANSETRON 4 MG/2 ML VIAL IVP STA (11:32)
[2022-10-20] MEDS ORDERED: KETOROLAC 15 MG/ML 1 ML VIAL IVP STA (11:32)
[2022-10-20 11:48] LABS: WBC 4.6 k/uL (3.8-10.6)
[2022-10-20 11:49] LABS: Basophils % (A) 0 %; Eosinophils # (A) 0.1 k/uL (0-0.7); Eosinophils % (A) 3 %; HCT 39.8 % (34.0-46.0); Lymphocytes # (A) 1.2 k/uL (1.0-4.8); Lymphocytes % (A) 26 %; MCH 28.3 pg (25.0-35.0); MCHC 35.3 g/dL (31.0-37.0); MCV 80.2 fL (80.0-100.0); Mean Platelet Volume 7.6; Monocytes # (A) 0.2 k/uL (0-1.0); Monocytes % (A) 4 %; Neutrophils # (A) 2.9 k/uL (1.3-7.7); Neutrophils % (A) 64 %; Platelet Count 248 k/uL (150-450); RBC 4.97 m/uL (3.80-5.40); RDW 12.5 % (11.5-15.5)
--- NOTE | 2022-10-20 11:54 | XR ---
EXAMINATION TYPE: XR KUB DATE OF EXAM: 10/20/2022 COMPARISON: NONE HISTORY: Pain TECHNIQUE: Single supine KUB image of the abdomen is obtained FINDINGS: Small bowel demonstrates no evidence for dilatation or air fluid levels. Gas and fecal material is seen in non-distended colon. No convincing evidence for pneumoperitoneum. No unusual calcifications. Correlate for hepatomegaly versus Jeremie's lobe. The lung bases are clear. The osseous structures are intact. IMPRESSION: 1. Overall nonobstructive bowel gas pattern.
[2022-10-20 11:55] LABS: Appearance,Urine Cloudy (Clear); Bacteria,Urine Rare /hpf; Bilirubin,Urine Negative (Negative); Blood,Urine Large (Negative); Color,Urine Yellow; Glucose,Urine (UA) Negative (Negative); Ketones,Urine Negative (Negative); Leukocyte Esterase,Urine Small (Negative); Mucus,Urine Occasional /hpf; Nitrite,Urine Negative (Negative); Protein,Urine Negative (Negative); RBC,Urine 4 /hpf (0-5); Specific Gravity,Urine 1.013 (1.001-1.035); Squamous Epithelial Cell,Urine 5 /hpf (0-4); Urobilinogen,Urine <2.0 mg/dL (<2.0); WBC,Urine 5 /hpf (0-5)
[2022-10-20 12:01] LABS: ALT 18 U/L (4-34); AST 18 U/L (14-36); African American GFR (CKD) >90 (>60 ml/min/1.73 sqM); Albumin 4.2 g/dL (3.5-5.0); Alkaline Phosphatase 63 U/L (38-126); Amylase 83 U/L (30-110); Anion Gap 10 mmol/L; Blood Urea Nitrogen 11 mg/dL (7-17); Calcium 8.9 mg/dL (8.4-10.2); Carbon Dioxide 21 mmol/L (22-30); Chloride 106 mmol/L (98-107); Glucose 107 mg/dL (74-99); HCG,Qualitative Serum Not Detected; Lipase 122 U/L (23-300); Non-African American GFR(CKD) >90 (>60 ml/min/1.73 sqM); Potassium 4.1 mmol/L (3.5-5.1); Sodium 137 mmol/L (137-145); Total Bilirubin 0.3 mg/dL (0.2-1.3); Total Protein 7.1 g/dL (6.3-8.2)
[2022-10-20] MEDS ORDERED: MORPHINE SULFATE 4 MG/ML SYRINGE IVP STA (12:19)
--- NOTE | 2022-10-20 12:22 | US ---
EXAMINATION TYPE: US kidneys/renal and bladder DATE OF EXAM: 10/20/2022 COMPARISON: CT, same day KUB CLINICAL INDICATION: Female, 36 years old with history of left flank pain, eval for stone/hydronep; P t states left flank pain, pt states h/o renal stones EXAM MEASUREMENTS: Right Kidney: 9.9 x 3.9 x5.5 cm Left Kidney: 9.6 x 3.5 x 4.5 cm Right Kidney: Appeared wnl Left Kidney: Appeared wnl Bladder: Not visualized, pt voided prior to exam There is no evidence for hydronephrosis at this point in time. No nephrolithiasis is seen. No dashawn s are identified. The urinary bladder is anechoic. Bilateral ureteral jets are seen. IMPRESSION: No discrete abnormality
[2022-10-20] MEDS ORDERED: ACET/COD 300 MG/30 MG STARTER PACK 6 TAB BTL PO STA (12:48)
--- NOTE | 2022-10-20 12:48 | ED ---
General Adult HPI - General Chief complaint: Urogenital Stated complaint: Abd Pain Time Seen by Provider: 10/20/22 11:14 Source: patient, RN notes reviewed, old records reviewed Mode of arrival: ambulatory Limitations: no limitations - History of Present Illness Initial comments: Patient is a 36-year-old female with past medical history remarkable for kidney stones who presents over concern for kidney stone. Is having left-sided CVA pain. Denies any dysuria but does endorse some hematuria the patient is also on her menstrual cycle currently. Denies diarrhea or constipation. Denies nausea or vomiting. Denies chest pain or shortness breath. Denies fevers. Denies being . Has no other acute complaints. Presents for further evaluation at this time. His concern for possible muscle strain versus kidney stone, she did fall a few days ago. Pain is been present for 2 days. - Related Data Home Medications Medication Instructions Recorded Confirmed Acetaminophen-Codeine 300-30mg 2 tab PO Q6H PRN 04/04/22 04/04/22 [Tylenol w/codeine #3] Progesterone, Micronized 200 mg PO DAILY 04/04/22 04/04/22 [Progesterone] Tamsulosin HCl [Flomax] 0.4 mg PO DAILY 04/04/22 04/04/22 ondansetron HCL [Zofran] 8 mg PO Q8H PRN 04/04/22 04/04/22 Previous Rx's Medication Instructions Recorded HYDROcodone/APAP 7.5-325MG [[place] 1 tab PO Q4H PRN 3 Days #18 tab 04/04/22 7.5-325] Ibuprofen [Motrin] 600 mg PO Q6HR PRN #30 tab 04/04/22 HYDROcodone/APAP 5-325MG [[place] 1 tab PO Q6HR PRN 3 Days #12 tab 10/20/22 5-325] Ondansetron Odt [Zofran Odt] 4 mg PO Q8HR PRN #6 tab 10/20/22 Tamsulosin HCl [Flomax] 0.4 mg PO DAILY 10 Days #10 capsule 10/20/22 Allergies Allergy/AdvReac Type Severity Reaction Status Date / Time amoxicillin [From Augmentin] Allergy Unknown Verified 10/20/22 11:13 azithromycin Allergy Unknown Verified 10/20/22 11:13 clavulanic acid Allergy Unknown Verified 10/20/22 11:13 [From Augmentin] latex Allergy Swelling Verified 10/20/22 11:13 Review of Systems ROS Statement: Those systems with pertinent positive or pertinent negative responses have been documented in the HPI. Review of Systems: CONST: Denies fever EYES: Denies blurry vision ENT: Denies nasal congestion C/V: Denies Chest pain RESP: Denies shortness of breath GI: Denies abdominal pain : Denies dysuria SKIN: Denies rash. MSK: Endorses left-sided mid back pain. NEURO: Denies headache ROS Other: All systems not noted in ROS Statement are negative. Past Medical History Past Medical History: No Reported History Additional Past Medical History / Comment(s): Obstetric history: She's had 2 live births, she's had one ectopic in the right fallopian tube for which she was treated with methotrexate. She also had a molar and a 17 week demise as well as several miscarriages. History of Any Multi-Drug Resistant Organisms: None Reported Past Surgical History: Section Past Psychological History: ADD/ADHD Smoking Status: Vaper Past Alcohol Use History: Occasional Past Drug Use History: Marijuana General Exam - General Exam Comments Initial Comments: General: Appears in no acute distress. HEAD: Normal with no signs of head trauma. EYES: EOMI ENT: Hearing grossly intact, normal oropharynx. RESPIRATORY: Clear breath sounds bilaterally. No wheezes, rales, or rhonchi. C/V: Regular rate and rhythm. S1 and S2 auscultated, peripheral pulses 2+ and intact throughout ABD: Abd is soft, nontender, nondistended. Left sided CVA tenderness to percussion. No guarding. No peritoneal signs. No rebound tenderness. EXT: Normal range of motion, no obvious deformity SKIN: No rashes or lesions observed on exposed skin. NEURO: Alert and oriented 4. Limitations: no limitations Course Vital Signs 10/20/22 10/20/22 11:10 13:01 Temperature 98.0 F Pulse Rate 93 72 Respiratory 16 18 Rate Blood Pressure 165/75 131/89 O2 Sat by Pulse 100 100 Oximetry Medical Decision Making - Medical Decision Making Was pt. sent in by a medical professional or institution (, PA, DRAINMAN, urgent care, hospital, or residential...) When possible be specific @ -No Did you speak to anyone other than the patient for history (EMS, parent, family, police, friend...)? What history was obtained from this source @ -No Did you review nursing and triage notes (agree or disagree)? Why? @ -I reviewed and agree with nursing and triage notes Were old charts reviewed (outside hosp., previous admission, EMS record, old EKG, old radiological studies, urgent care reports/EKG's, residential records)? Report findings @ -No old charts were reviewed Differential Diagnosis (chest pain, altered mental status, abdominal pain women, abdominal pain men, vaginal bleeding, weakness, fever, dyspnea, syncope, headach e, dizziness, GI bleed, back pain, seizure, CVA, palpatations, mental health, musculoskeletal)? @ -Pyonephritis, UTI, muscle strain, nephrolithiasis, ureterolithiasis. This list is not all-inclusive. EKG interpreted by me (3pts min.). @ -None done X-rays interpreted by me (1pt min.). @ -KUB x-ray reveals no obvious acute intra-abdominal process. CT interpreted by me (1pt min.). @ -None done U/S interpreted by me (1pt. min.). @ -Ultrasound is interpreted by radiology reveals no evidence of hydronephrosis, nephrolithiasis. What testing was considered but not performed or refused? (CT, X-rays, U/S, labs)? Why? @ -Considered CT imaging and offered, however this was declined at this time as patient's pain is controlled with normal labs. What meds were considered but not given or refused? Why? @ -None Did you discuss the management of the patient with other professionals (professionals i.e. , PA, DRAINMAN, lab, RT, psych nurse, social services designee, ice puller, teacher, bsa/aml compliance officer, case folder)? Give summary @ -No Was smoking cessation discussed for >3mins.? @ -No Was critical care preformed (if so, how long)? @ -No Were there social determinants of health that impacted care today? How? (Homelessness, low income, unemployed, alcoholism, drug addiction, transportation, low edu. Level, literacy, decrease access to med. care, alf, rehab)? @ -No Was there de-escalation of care discussed even if they declined (Discuss DNR or withdrawal of care, Hospice)? DNR status @ -No What co-morbidities impacted this encounter? (DM, HTN, Smoking, COPD, CAD, Cancer, CVA, ARF, Chemo, Hep., AIDS, mental health diagnosis, sleep apnea, morbid obesity)? @ -History of kidney stones Was patient admitted / discharged? Hospital course, mention meds given and route, prescriptions, significant lab abnormalities, going to OR and other pertinent info. @ -Based on the patient's presentation and physical exam, I'm concerned for was likely either a muscle strain or possible UTI or kidney stone. We will obtain abdominal laboratory studies. We discussed imaging options, and we determined that patient will receive a KUB x-ray as well as ultrasound of the bladder is and kidneys to avoid excess radiation with CT imaging that she has received multiple past. She was in agreement with this plan. Vital signs within acceptable limits. Patient was symptomatically treated with IV fluids, Zofran, Toradol, morphine. She was in agreement this plan. Labs are unremarkable. She is not . Urinalysis reveals large amount of blood contaminated catch with no evidence of infection. Imaging shows no evidence of stone or other acute process at this time. On reevaluation, patient's pain is improved. We discussed obtaining CT imaging at this time which was declined. I believe it is safer to be discharged home. We will treat her as a kidney stone at this time and she was in agreement with the plan. She will be given prescriptions for Flomax, [place], Zofran. She'll follow up with her urologist as needed. She was in agreement with this plan. No concern for significant a size kidney stone as the patient has no evidence of hydro-on ultrasound imaging. No evidence of septic or infected stone. I will provide the patient with a prescription for Flomax, [place], Zofran. I instructed the patient to follow up with their PCP in the next 1-3 days. I provided contact information for follow up with urology. I explained that the patient should return to the emergency department if they experience any worsening symptoms. Strict return precautions were discussed with the patient. The patient expressed understanding of these instructions. I answered all questions that the patient had. The patient was discharged home in good condition with their prescriptions and follow up information. Undiagnosed new problem with uncertain prognosis? @ -No Drug Therapy requiring intensive monitoring for toxicity (Heparin, Nitro, Insulin, Cardizem)? @ -No Were any procedures done? @ -No Diagnosis/symptom? @ -Left flank pain of unknown etiology, muscle strain versus kidney stone Acute, or Chronic, or Acute on Chronic? @ -Acute Uncomplicated (without systemic symptoms) or Complicated (systemic symptoms)? @ -Complicated Side effects of treatment? @ -No Exacerbation, Progression, or Severe Exacerbation? @ -No Poses a threat to life or bodily function? How? (Chest pain, [place], [place], pneumonia, PE, COPD, DKA, ARF, appy, cholecystitis, CVA, Diverticulitis, Homicidal, Suicidal, threat to staff... and all critical care pts) @ -No - Lab Data Result diagrams: 10/20/22 11:10/20/22 11: Lab Results 10/20/22 10/20/22 10/20/22 Range/Units 11:23 11: 11:23 WBC 4.6 (3.8-10.6) k/uL RBC 4.97 (3.80-5.40) m/uL Hgb 14.0 (11.4-16.0) gm/dL Hct 39.8 (34.0-46.0) % MCV 80.2 (80.0-100.0) fL MCH 28.3 (25.0-35.0) pg MCHC 35.3 (31.0-37.0) g/dL RDW 12.5 (11.5-15.5) % Plt Count 248 (150-450) k/uL MPV 7.6 Neutrophils % 64 % Lymphocytes % 26 % Monocytes % 4 % Eosinophils % 3 % Basophils % 0 % Neutrophils # 2.9 (1.3-7.7) k/uL Lymphocytes # 1.2 (1.0-4.8) k/uL Monocytes # 0.2 (0-1.0) k/uL Eosinophils # 0.1 (0-0.7) k/uL Basophils # 0.0 (0-0.2) k/uL Sodium 137 (137-145) mmol/L Potassium 4.1 (3.5-5.1) mmol/L Chloride 106 (98-107) mmol/L Carbon Dioxide 21 L (22-30) mmol/L Anion Gap 10 mmol/L BUN 11 (7-17) mg/dL Creatinine 0.61 (0.52-1.04) mg/dL Est GFR (CKD-EPI)AfAm >90 (>60 ml/min/1.73 sqM) Est GFR (CKD-EPI)NonAf >90 (>60 ml/min/1.73 sqM) Glucose 107 H (74-99) mg/dL Calcium 8.9 (8.4-10.2) mg/dL Total Bilirubin 0.3 (0.2-1.3) mg/dL AST 18 (14-36) U/L ALT 18 (4-34) U/L Alkaline Phosphatase 63 (38-126) U/L Total Protein 7.1 (6.3-8.2) g/dL Albumin 4.2 (3.5-5.0) g/dL Amylase 83 (30-110) U/L Lipase 122 (23-300) U/L HCG, Qual Not Detected Urine Color Yellow Urine Appearance Cloudy H (Clear) Urine pH 6.0 (5.0-8.0) Ur Specific [place] 1.013 (1.001-1.035) Urine Protein Negative (Negative) Urine Glucose (UA) Negative (Negative) Urine Ketones Negative (Negative) Urine Blood Large H (Negative) Urine Nitrite Negative (Negative) Urine Bilirubin Negative (Negative) Urine Urobilinogen <2.0 (<2.0) mg/dL Ur Leukocyte Esterase Small H (Negative) Urine RBC 4 (0-5) /hpf Urine WBC 5 (0-5) /hpf Ur Squamous Epith Cells 5 H (0-4) /hpf Urine Bacteria Rare H (None) /hpf Urine Mucus Occasional H (None) /hpf Disposition Clinical Impression: Flank pain Disposition: HOME SELF-CARE Condition: Good Instructions (If sedation given, give patient instructions): Kidney Stones (ED), Flank Pain (ED) Prescriptions: Tamsulosin HCl [Flomax] 0.4 mg PO DAILY 10 Days #10 capsule HYDROcodone/APAP 5-325MG [[place] 5-325] 1 tab PO Q6HR PRN 3 Days #12 tab PRN Reason: Pain Ondansetron Odt [Zofran Odt] 4 mg PO Q8HR PRN #6 tab PRN Reason: Nausea Is patient prescribed a controlled substance at d/c from ED?: Yes If prescribed controlled substance>3 days was MAPS reviewed?: Prescribed <3 Days If opioid is for acute pain is fill amount 7 days or less?: Yes Referrals: Benny Sheehan MD [Primary Care Provider] - 1-2 days Ye Quijano MD [STAFF PHYSICIAN] - 1-2 days Time of Disposition: 12:32
[2022-10-20 13:02] VITALS: BP 131/89; PULSE 72; RESP 18
== END 2022-10-20 13:02 | disposition home or self-care (01) ==
LOC: EC 11:09
DX: R10.9 Unspecified abdominal pain (principal); F90.9 Attention-deficit hyperactivity disorder, unspecified type; F17.290 Nicotine dependence, other tobacco product, uncomplicated; F12.90 Cannabis use, unspecified, uncomplicated; Z79.899 Other long term (current) drug therapy; Z91.040 Latex allergy status; Z88.0 Allergy status to penicillin; Z88.6 Allergy status to analgesic agent; Z88.1 Allergy status to other antibiotic agents
CPT/HCPCS: 36415; 80053; 82150; 83690; 85025; 81001; 84703; 74018; 76770; 99284; 96374; 96375 ×2; 96361; J2270; J2405; J1885

== ENCOUNTER → 2022-10-23 | Outpatient (CLI) | payer OTHER ==
[2022-10-23 20:39] LABS: ALT 19 U/L (8-44); AST 14 U/L (13-35); Albumin 4.2 d/dL (3.8-4.9); Albumin/Globulin Ratio 1.75 Ratio (1.60-3.17); Alkaline Phosphatase 61 U/L (41-126); BUN/Creat Ratio 12.17 Ratio (12.00-20.00); Blood Urea Nitrogen 7.3 mg/dL (9.0-27.0); Calcium 9.1 mg/dL (8.7-10.3); Carbon Dioxide 24.2 mmol/L (21.6-31.8); Chloride 104 mmol/L (96-109); Chol/HDL Ratio 2.85 Ratio; Globulin 2.4 d/dL (1.6-3.3); Glucose 91 mg/dL (70-110); LDL Cholesterol,Calculated 64.8 mg/dL (0.0-131.0); Potassium 4.4 mmol/L (3.5-5.5); Sodium 140 mmol/L (135-145); T4, Free (Free Thyroxine) 1.46 ng/dL (0.80-1.80); Total Bilirubin <0.2 mg/dL (0.3-1.2); Total Protein 6.6 d/dL (6.2-8.2)
[2022-10-23 22:09] LABS: Basophils # (A) 0.03 X 10*3/uL (0.00-0.10); Basophils % (A) 0.5 %; Eosinophils # (A) 0.11 X 10*3/uL (0.04-0.35); HCT 36.6 % (37.2-46.3); HGB 12.2 d/dL (12.0-15.0); Lymphocytes # (A) 1.38 X 10*3/uL (0.90-5.00); Lymphocytes % (A) 24.6 %; MCH 27.7 pg (27.0-32.0); MCHC 33.3 d/dL (32.0-37.0); Mean Platelet Volume 9.9 FL (9.5-12.2); Monocytes # (A) 0.41 X 10*3/uL (0.20-1.00); Monocytes % (A) 7.3 %; NRBC Per 100 WBC 0 X 10*3/uL (0.00-0.01); Neutrophils # (A) 3.67 X 10*3/uL (1.80-7.70); Neutrophils % (A) 65.4 %; Platelet Count 239 X 10*3/uL (140-440); RBC 4.41 X 10*6/uL (4.10-5.20); RDW 12.3 % (11.5-14.5); WBC 5.61 X 10*3/uL (4.50-10.00)
== END | disposition home or self-care (01) ==
LOC: LABWHC1 11:29
PROVIDERS: ATTEND Nurse Practitioner
DX: Z13.1 Encounter for screening for diabetes mellitus (principal); Z13.220 Encounter for screening for lipoid disorders; F90.9 Attention-deficit hyperactivity disorder, unspecified type; Z79.899 Other long term (current) drug therapy
CPT/HCPCS: 36415; 80053; 80061; 82175; 82306; 82390; 82525; 82570; 83036; 83655; 83825; 84207; 84439; 84443; 84630; 85025

== ENCOUNTER 2022-10-24 10:12 | Emergency (ER) | payer OTHER ==
[2022-10-24] MEDS ORDERED: KETOROLAC 15 MG/ML 1 ML VIAL IVP STA (11:01)
[2022-10-24] MEDS ORDERED: MORPHINE SULFATE 4 MG/ML SYRINGE IVP STA (11:01)
[2022-10-24] MEDS ORDERED: SODIUM CHLORIDE 0.9% 1,000 ML IV ONE (11:02)
--- NOTE | 2022-10-24 11:09 | ED ---
General Adult HPI - General Chief complaint: Abdominal Pain Stated complaint: back pain Time Seen by Provider: 10/24/22 10:28 Source: patient, RN notes reviewed Mode of arrival: ambulatory Limitations: no limitations - History of Present Illness Initial comments: 36-year-old female presents emergency department for chief complaint of left flank pain 6 days. She states the pain radiates around to her left-sided groin. She states the pain is worse in the morning and at night she has occasional relief during the day. She admits to urinary frequency. She states that she was seen for this on 10/20/22 in the ED and was treated for a kidney stone with tamsulosin and [place] for pain. She states that she was having blood in the urine at that time but is not anymore. She states that the pain is not improving. She reports associated chills yesterday but denies fever today. Denies . - Related Data Home Medications Medication Instructions Recorded Confirmed Ashwagandha Root Extract 500 mg PO DAILY 10/24/22 10/24/22 [Ashwagandha] Iodine 1 tab PO DAILY 10/24/22 10/24/22 Vitamin E (Dl,Tocopheryl Acet) 400 unit PO DAILY 10/24/22 10/24/22 [Vitamin E (400 Iu = 180 mg)] Previous Rx's Medication Instructions Recorded Tamsulosin HCl [Flomax] 0.4 mg PO DAILY 10 Days #10 capsule 10/20/22 Cyclobenzaprine [Flexeril] 10 mg PO TID PRN #15 tab 10/24/22 Allergies Allergy/AdvReac Type Severity Reaction Status Date / Time latex Allergy Swelling Verified 10/24/22 12:43 amoxicillin [From Augmentin] AdvReac Hallucinations Verified 10/24/22 12:43 as a child - see comment azithromycin AdvReac Hallucinations Verified 10/24/22 12:43 as a child clavulanic acid AdvReac Hallucinations Verified 10/24/22 12:43 [From Augmentin] as a child Review of Systems ROS Statement: Those systems with pertinent positive or pertinent negative responses have been documented in the HPI. ROS Other: All systems not noted in ROS Statement are negative. Past Medical History Past Medical History: No Reported History Additional Past Medical History / Comment(s): Obstetric history: She's had 2 live births, she's had one ectopic in the right fallopian tube for which she was treated with methotrexate. She also had a molar and a 17 week demise as well as several miscarriages. Kidney stones. History of Any Multi-Drug Resistant Organisms: None Reported Past Surgical History: Section Past Psychological History: ADD/ADHD Smoking Status: Vaper Past Alcohol Use History: Occasional Past Drug Use History: Marijuana General Exam Limitations: no limitations General appearance: alert, in no apparent distress Head exam: Present: atraumatic, normocephalic, normal inspection Eye exam: Present: normal appearance, PERRL, EOMI. Absent: scleral icterus, conjunctival injection, periorbital swelling ENT exam: Present: normal exam, mucous membranes moist Neck exam: Present: normal inspection. Absent: tenderness, meningismus, lymphadenopathy Respiratory exam: Present: normal lung sounds bilaterally. Absent: respiratory distress, wheezes, rales, rhonchi, stridor Cardiovascular Exam: Present: regular rate, normal rhythm, normal heart sounds. Absent: systolic murmur, diastolic murmur, rubs, gallop, clicks GI/Abdominal exam: Present: soft, normal bowel sounds. Absent: distended, tenderness, guarding, rebound, rigid Extremities exam: Present: normal inspection, full ROM, normal capillary refill. Absent: tenderness, pedal edema, joint swelling, calf tenderness Back exam: Present: normal inspection, tenderness (Left flank) Neurological exam: Present: alert, oriented X3, CN II-XII intact Psychiatric exam: Present: normal affect, normal mood Skin exam: Present: warm, dry, intact, normal color. Absent: rash Course Vital Signs 10/24/22 10/24/22 10:21 13:28 Temperature 98.8 F 98.2 F Pulse Rate 88 62 Respiratory 22 18 Rate Blood Pressure 117/70 109/70 O2 Sat by Pulse 99 98 Oximetry Medical Decision Making - Medical Decision Making Was pt. sent in by a medical professional or institution (, PA, HOSPITAL LIAISON, urgent care, hospital, or skilled nursing...) When possible be specific @ -[No] Did you speak to anyone other than the patient for history (EMS, parent, family, police, friend...)? What history was obtained from this source @ -[No] Did you review nursing and triage notes (agree or disagree)? Why? @ -[I reviewed and agree with nursing and triage notes] Were old charts reviewed (outside hosp., previous admission, EMS record, old EKG, old radiological studies, urgent care reports/EKG's, skilled nursing records)? Report findings @ -[No old charts were reviewed] Differential Diagnosis (chest pain, altered mental status, abdominal pain women, abdominal pain men, vaginal bleeding, weakness, fever, dyspnea, syncope, headache, dizziness, GI bleed, back pain, seizure, CVA, palpatations, mental health, musculoskeletal)? @ -[Differential Abdominal Pain Women: Appendicitis, Cholecystitis, diverticulosis, ischemic bowel, pancreatitis, hepatitis, UTI, gastroenteritis, AAA, incarcerated hernia, bowel obstruction, constipation, inflammatory bowel, hepatitis, peptic ulcer disease, splenic infarction, perforated viscus, vulvitis, ovarian torsion, PID, kidney stone, placenta abruption, this is not meant to be an all-inclusive list] EKG interpreted by me (3pts min.). @ -[None] X-rays interpreted by me (1pt min.). @ -[None done] CT interpreted by me (1pt min.). @ -[CT abdomen and pelvis showed no evidence for acute process] U/S interpreted by me (1pt. min.). @ -[None done] What testing was considered but not performed or refused? (CT, X-rays, U/S, labs)? Why? @ -[None] What meds were considered but not given or refused? Why? @ -[None] Did you discuss the management of the patient with other professionals (professionals i.e. , PA, HOSPITAL LIAISON, lab, RT, psych nurse, oncology social worker, master fire control technician, teacher, retail loan officer, registered nurse hh case manager)? Give summary @ -[No] Was smoking cessation discussed for >3mins.? @ -[No] Was critical care preformed (if so, how long)? @ -[No] Were there social determinants of health that impacted care today? How? (Homelessness, low income, unemployed, alcoholism, drug addiction, transportation, low edu. Level, literacy, decrease access to med. care, retirement, rehab)? @ -[No] Was there de-escalation of care discussed even if they declined (Discuss DNR or withdrawal of care, Hospice)? DNR status @ -[No] What co-morbidities impacted this encounter? (DM, HTN, Smoking, COPD, CAD, Cancer, CVA, ARF, Chemo, Hep., AIDS, mental health diagnosis, sleep apnea, morb id obesity)? @ -[None] Was patient admitted / discharged? Hospital course, mention meds given and route, prescriptions, significant lab abnormalities, going to OR and other pertinent info. @ -[Discharged. Patient is an emergency department chief complaint of left flank pain. Patient was evaluated for this 4 days ago and was given treatment for a kidney stone. Today CBC, CMP, UA within normal limits. CT abdomen and pelvis was obtained which showed no evidence for acute process. Patient was given morphine and Toradol which she states improved her pain significantly. Patient was discharged home in stable condition. Prescription was sent for Flexeril and patient was advised not to drive or operate heavy machinery while taking the medication. Case discussed with my attending, Dr. Ivey.] Undiagnosed new problem with uncertain prognosis? @ -[No] Drug Therapy requiring intensive monitoring for toxicity (Heparin, Nitro, Insulin, Cardizem)? @ -[No] Were any procedures done? @ -[No] Diagnosis/symptom? @ -[Muscle strain] Acute, or Chronic, or Acute on Chronic? @ -[acute] Uncomplicated (without systemic symptoms) or Complicated (systemic symptoms)? @ -[uncomplicated] Side effects of treatment? @ -[No] Exacerbation, Progression, or Severe Exacerbation? @ -[No] Poses a threat to life or bodily function? How? (Chest pain, USA, VT, pneumonia, PE, COPD, DKA, ARF, appy, cholecystitis, CVA, Diverticulitis, Homicidal, Suicidal, threat to staff... and all critical care pts) @ -[No] - Lab Data Result diagrams: 10/24/22 11:04 10/24/22 11:04 Lab Results 10/24/22 10/24/22 10/24/22 Range/Units 11:04 11:04 11:04 WBC 4.2 (3.8-10.6) k/uL RBC 4.51 (3.80-5.40) m/uL Hgb 12.6 (11.4-16.0) gm/dL Hct 36.7 (34.0-46.0) % MCV 81.3 (80.0-100.0) fL MCH 27.8 (25.0-35.0) pg MCHC 34.3 (31.0-37.0) g/dL RDW 12.2 (11.5-15.5) % Plt Count 226 (150-450) k/uL MPV 7.2 Neutrophils % 65 % Lymphocytes % 26 % Monocytes % 4 % Eosinophils % 3 % Basophils % 1 % Neutrophils # 2.8 (1.3-7.7) k/uL Lymphocytes # 1.1 (1.0-4.8) k/uL Monocytes # 0.2 (0-1.0) k/uL Eosinophils # 0.1 (0-0.7) k/uL Basophils # 0.0 (0-0.2) k/uL Sodium 136 L (137-145) mmol/L Potassium 4.5 (3.5-5.1) mmol/L Chloride 105 (98-107) mmol/L Carbon Dioxide 25 (22-30) mmol/L Anion Gap 6 mmol/L BUN 9 (7-17) mg/dL Creatinine 0.61 (0.52-1.04) mg/dL Est GFR (CKD-EPI)AfAm >90 (>60 ml/min/1.73 sqM) Est GFR (CKD-EPI)NonAf >90 (>60 ml/min/1.73 sqM) Glucose 94 (74-99) mg/dL Calcium 8.6 (8.4-10.2) mg/dL Total Bilirubin 0.2 (0.2-1.3) mg/dL AST 20 (14-36) U/L ALT 20 (4-34) U/L Alkaline Phosphatase 55 (38-126) U/L Total Protein 6.7 (6.3-8.2) g/dL Albumin 3.9 (3.5-5.0) g/dL Amylase 74 (30-110) U/L Lipase 84 (23-300) U/L Urine Color Light Yellow Urine Appearance Clear (Clear) Urine pH 7.5 (5.0-8.0) Ur Specific [place] 1.009 (1.001-1.035) Urine Protein Negative (Negative) Urine Glucose (UA) Negative (Negative) Urine Ketones Negative (Negative) Urine Blood Negative (Negative) Urine Nitrite Negative (Negative) Urine Bilirubin Negative (Negative) Urine Urobilinogen <2.0 (<2.0) mg/dL Ur Leukocyte Esterase Negative (Negative) Disposition Clinical Impression: Muscle strain Disposition: HOME SELF-CARE Condition: Stable Instructions (If sedation given, give patient instructions): Muscle Strain (ED) Additional Instructions: Do not operate heavy machinery or drive while taking muscle relaxers. Alternate Tylenol and Motrin as needed for pain. Please return to the emergency department for new or worsening symptoms. Prescriptions: Cyclobenzaprine [Flexeril] 10 mg PO TID PRN #15 tab PRN Reason: Muscle Spasm Is patient prescribed a controlled substance at d/c from ED?: No Referrals: Benny Sheehan MD [Primary Care Provider] - 1-2 days Time of Disposition: 13:25
[2022-10-24 11:24] LABS: Basophils % (A) 1 %; Eosinophils # (A) 0.1 k/uL (0-0.7); Eosinophils % (A) 3 %; HCT 36.7 % (34.0-46.0); HGB 12.6 gm/dL (11.4-16.0); Lymphocytes # (A) 1.1 k/uL (1.0-4.8); Lymphocytes % (A) 26 %; MCH 27.8 pg (25.0-35.0); MCHC 34.3 g/dL (31.0-37.0); MCV 81.3 fL (80.0-100.0); Mean Platelet Volume 7.2; Monocytes # (A) 0.2 k/uL (0-1.0); Monocytes % (A) 4 %; Neutrophils # (A) 2.8 k/uL (1.3-7.7); Neutrophils % (A) 65 %; Platelet Count 226 k/uL (150-450); RBC 4.51 m/uL (3.80-5.40); RDW 12.2 % (11.5-15.5); WBC 4.2 k/uL (3.8-10.6)
[2022-10-24 11:30] LABS: Appearance,Urine Clear (Clear); Bilirubin,Urine Negative (Negative); Blood,Urine Negative (Negative); Color,Urine Light Yellow; Glucose,Urine (UA) Negative (Negative); Ketones,Urine Negative (Negative); Leukocyte Esterase,Urine Negative (Negative); Nitrite,Urine Negative (Negative); PH, Urine 7.5 (5.0-8.0); Protein,Urine Negative (Negative); Specific Gravity,Urine 1.009 (1.001-1.035); Urobilinogen,Urine <2.0 mg/dL (<2.0)
[2022-10-24 11:39] LABS: ALT 20 U/L (4-34); AST 20 U/L (14-36); African American GFR (CKD) >90 (>60 ml/min/1.73 sqM); Albumin 3.9 g/dL (3.5-5.0); Alkaline Phosphatase 55 U/L (38-126); Amylase 74 U/L (30-110); Anion Gap 6 mmol/L; Blood Urea Nitrogen 9 mg/dL (7-17); Calcium 8.6 mg/dL (8.4-10.2); Carbon Dioxide 25 mmol/L (22-30); Chloride 105 mmol/L (98-107); Glucose 94 mg/dL (74-99); Lipase 84 U/L (23-300); Non-African American GFR(CKD) >90 (>60 ml/min/1.73 sqM); Potassium 4.5 mmol/L (3.5-5.1); Sodium 136 mmol/L (137-145); Total Bilirubin 0.2 mg/dL (0.2-1.3); Total Protein 6.7 g/dL (6.3-8.2)
--- NOTE | 2022-10-24 12:38 | CT ---
EXAMINATION TYPE: CT abdomen pelvis w con CT DLP: 655.3 mGycm, Automated exposure control for dose reduction was used. DATE OF EXAM: 10/24/2022 12:16 PM COMPARISON: CT abdomen pelvis most recent from 04/04/2021, renal ultrasound 10/20/2022. CLINICAL INDICATION:Female, 36 years old with history of abd pain; Abdominal pain and back pain. Hx r enal stones. TECHNIQUE: Standard CT of the abdomen and pelvis following the administration of 100 cc of Isovue 3 00 IV contrast material. Coronal and sagittal reformats were performed. FINDINGS: LOWER CHEST: Posterior dependent subsegmental atelectasis is noted. ABDOMEN LIVER: Small region of low attenuation adjacent to the falciform ligament likely representing focal f atty infiltration. GALLBLADDER AND BILE DUCTS: Unremarkable. PANCREAS: Unremarkable. SPLEEN: Unremarkable. ADRENAL GLANDS: Unremarkable. KIDNEYS AND URETERS: No evidence of hydronephrosis or renal calculus. The kidneys enhance symmetrical ly. Contrast is demonstrated within both collecting systems on the delayed phase. PELVIS BLADDER: Unremarkable REPRODUCTIVE: Unremarkable. ABDOMEN & PELVIS STOMACH AND BOWEL: Stomach and duodenum are unremarkable. No focal bowel wall thickening or surroundi ng inflammatory changes. Mild proximal colon stool burden. No evidence of bowel obstruction. The appe ndix is not definitively visualized however there is no significant inflammatory changes within the r ight lower quadrant. PERITONEUM: No evidence of pneumoperitoneum. Trace free fluid in the pelvis. VASCULATURE: No evidence of aortic aneurysm. MUSCULOSKELETAL: No acute osseous abnormalities LYMPH NODES: No gross evidence for lymphadenopathy. SOFT TISSUE/ABDOMINAL WALL: Unremarkable IMPRESSION: 1. No acute abdominal/pelvic process. 2. Mild colonic stool burden.
[2022-10-24 13:29] VITALS: BP 109/70; PULSE 62; RESP 18; TEMP 98.2
== END 2022-10-24 13:56 | disposition home or self-care (01) ==
LOC: EC 10:12
DX: S39.011A Strain of muscle, fascia and tendon of abdomen, initial encounter (principal); F17.290 Nicotine dependence, other tobacco product, uncomplicated; F12.90 Cannabis use, unspecified, uncomplicated; Z88.0 Allergy status to penicillin; Z88.1 Allergy status to other antibiotic agents; Z91.040 Latex allergy status; X58.XXXA Exposure to other specified factors, initial encounter
CPT/HCPCS: 36415; 80053; 82150; 83690; 85025; 81003; 74177; 99284; 96374; 96375; 96361; J2270; J1885; Q9967

== ENCOUNTER 2022-12-25 14:43 | Emergency (ER) | payer OTHER ==
[2022-12-25 14:56] VITALS: RESP 18; TEMP 98.7
--- NOTE | 2022-12-25 14:57 | ED ---
General Adult HPI - General Source: patient, RN notes reviewed Mode of arrival: ambulatory Limitations: no limitations <Randall Burgess - Last Filed: 12/25/22 14:55> <Jose Zavala - Last Filed: 12/25/22 21:37> - General Stated complaint: blood in urine Time Seen by Provider: 12/25/22 14:56 - History of Present Illness Initial comments: This a 37-year-old female presents emergency Department chief complaint of hematuria, pain. Patient states she seen 2 times prior to this for similar complaints. Patient states her primary care physician has ordered an ultrasound but is unable to complete this soon states that symptoms are getting worse. She states she's been told is probably from kidney stone but she had no definite findings of kidney stone. She denies any chance she states she was told she had does not have recurrent urinary tract infection. (Randall Burgess) - Related Data Home Medications Medication Instructions Recorded Confirmed Ashwagandha Root Extract 500 mg PO DAILY 10/24/22 10/24/22 [Ashwagandha] Iodine 1 tab PO DAILY 10/24/22 10/24/22 Vitamin E (Dl,Tocopheryl Acet) 400 unit PO DAILY 10/24/22 10/24/22 [Vitamin E (400 Iu = 180 mg)] Previous Rx's Medication Instructions Recorded Tamsulosin HCl [Flomax] 0.4 mg PO DAILY 10 Days #10 capsule 10/20/22 Cyclobenzaprine [Flexeril] 10 mg PO TID PRN #15 tab 10/24/22 Hyoscyamine Sulfate [Levsin] 0 mg PO Q4H PRN #24 tablet 12/25/22 Allergies Allergy/AdvReac Type Severity Reaction Status Date / Time latex Allergy Swelling Verified 12/25/22 14:57 amoxicillin [From Augmentin] AdvReac Hallucinations Verified 12/25/22 14:57 as a child - see comment azithromycin AdvReac Hallucinations Verified 12/25/22 14:57 as a child clavulanic acid AdvReac Hallucinations Verified 12/25/22 14:57 [From Augmentin] as a child Review of Systems ROS Other: All systems not noted in ROS Statement are negative. <Randall Burgess - Last Filed: 12/25/22 14:55> ROS Other: All systems not noted in ROS Statement are negative. <Jose Zavala - Last Filed: 12/25/22 21:37> ROS Statement: Those systems with pertinent positive or pertinent negative responses have been documented in the HPI. Past Medical History Past Medical History: No Reported History Additional Past Medical History / Comment(s): Obstetric history: She's had 2 live births, she's had one ectopic in the right fallopian tube for which she was treated with methotrexate. She also had a molar and a 17 week demise as well as several miscarriages. Kidney stones. History of Any Multi-Drug Resistant Organisms: None Reported Past Surgical History: Section Past Psychological History: ADD/ADHD Smoking Status: Vaper Past Alcohol Use History: Occasional Past Drug Use History: Marijuana <Randall Burgess - Last Filed: 12/25/22 14:55> General Exam <Randall Burgess - Last Filed: 12/25/22 14:55> - General Exam Comments Initial Comments: Visual Physical Exam Vital signs reviewed General: Well-appearing, nontoxic, no acute distress. Head: Normocephalic, atraumatic Eyes: PERRLA, EOMI ENT: Airway patent Chest: Nonlabored breathing Skin: No visual rash, normal skin tone Neuro: Alert and oriented 3 Musculoskeletal: No gross abnormalities (Randall Burgess) Course Vital Signs 12/25/22 14:53 Temperature 98.7 F Pulse Rate 129 H Respiratory 18 Rate Blood Pressure 147/67 O2 Sat by Pulse 97 Oximetry Medical Decision Making <Randall Burgess - Last Filed: 12/25/22 14:55> - Lab Data Result diagrams: 12/25/22 15:16 12/25/22 15:16 <Jose Zavala - Last Filed: 12/25/22 21:37> - Medical Decision Making I performed a quick note portion of this chart signed Randall Burgess PA-C (Randall Burgess) - Lab Data Lab Results 12/25/22 12/25/22 12/25/22 Range/Units 15:16 15:16 15:16 WBC 4.7 (3.8-10.6) k/uL RBC 4.98 (3.80-5.40) m/uL Hgb 13.8 (11.4-16.0) gm/dL Hct 40.0 (34.0-46.0) % MCV 80.4 (80.0-100.0) fL MCH 27.7 (25.0-35.0) pg MCHC 34.5 (31.0-37.0) g/dL RDW 12.5 (11.5-15.5) % Plt Count 301 (150-450) k/uL MPV 7.4 Neutrophils % 53 % Lymphocytes % 39 % Monocytes % 4 % Eosinophils % 2 % Basophils % 0 % Neutrophils # 2.5 (1.3-7.7) k/uL Lymphocytes # 1.8 (1.0-4.8) k/uL Monocytes # 0.2 (0-1.0) k/uL Eosinophils # 0.1 (0-0.7) k/uL Basophils # 0.0 (0-0.2) k/uL Sodium (137-145) mmol/L Potassium (3.5-5.1) mmol/L Chloride (98-107) mmol/L Carbon Dioxide (22-30) mmol/L Anion Gap mmol/L BUN (7-17) mg/dL Creatinine (0.52-1.04) mg/dL Est GFR (CKD-EPI)AfAm (>60 ml/min/1.73 sqM) Est GFR (CKD-EPI)NonAf (>60 ml/min/1.73 sqM) Glucose (74-99) mg/dL Calcium (8.4-10.2) mg/dL Total Bilirubin (0.2-1.3) mg/dL AST (14-36) U/L ALT (4-34) U/L Alkaline Phosphatase (38-126) U/L Total Protein (6.3-8.2) g/dL Albumin (3.5-5.0) g/dL Lipase (23-300) U/L Urine Color Dark Yellow Urine Appearance Clear (Clear) Urine pH 5.5 (5.0-8.0) Ur Specific [place] 1.005 (1.001-1.035) Urine Protein Negative (Negative) Urine Glucose (UA) Negative (Negative) Urine Ketones Negative (Negative) Urine Blood Negative (Negative) Urine Nitrite Negative (Negative) Urine Bilirubin Negative (Negative) Urine Urobilinogen <2.0 (<2.0) mg/dL Ur Leukocyte Esterase Negative (Negative) Urine HCG, Qual Not Detected (Not Detectd) 12/25/22 Range/Units 15:16 WBC (3.8-10.6) k/uL RBC (3.80-5.40) m/uL Hgb (11.4-16.0) gm/dL Hct (34.0-46.0) % MCV (80.0-100.0) fL MCH (25.0-35.0) pg MCHC (31.0-37.0) g/dL RDW (11.5-15.5) % Plt Count (150-450) k/uL MPV Neutrophils % % Lymphocytes % % Monocytes % % Eosinophils % % Basophils % % Neutrophils # (1.3-7.7) k/uL Lymphocytes # (1.0-4.8) k/uL Monocytes # (0-1.0) k/uL Eosinophils # (0-0.7) k/uL Basophils # (0-0.2) k/uL Sodium 138 (137-145) mmol/L Potassium 4.3 (3.5-5.1) mmol/L Chloride 105 (98-107) mmol/L Carbon Dioxide 22 (22-30) mmol/L Anion Gap 11 mmol/L BUN 10 (7-17) mg/dL Creatinine 0.61 (0.52-1.04) mg/dL Est GFR (CKD-EPI)AfAm >90 (>60 ml/min/1.73 sqM) Est GFR (CKD-EPI)NonAf >90 (>60 ml/min/1.73 sqM) Glucose 117 H (74-99) mg/dL Calcium 9.4 (8.4-10.2) mg/dL Total Bilirubin 0.4 (0.2-1.3) mg/dL AST 18 (14-36) U/L ALT 17 (4-34) U/L Alkaline Phosphatase 64 (38-126) U/L Total Protein 7.7 (6.3-8.2) g/dL Albumin 4.5 (3.5-5.0) g/dL Lipase 63 (23-300) U/L Urine Color Urine Appearance (Clear) Urine pH (5.0-8.0) Ur Specific [place] (1.001-1.035) Urine Protein (Negative) Urine Glucose (UA) (Negative) Urine Ketones (Negative) Urine Blood (Negative) Urine Nitrite (Negative) Urine Bilirubin (Negative) Urine Urobilinogen (<2.0) mg/dL Ur Leukocyte Esterase (Negative) Urine HCG, Qual (Not Detectd) Disposition <Randall Burgess - Last Filed: 12/25/22 14:55> Is patient prescribed a controlled substance at d/c from ED?: No <Jose Zavala - Last Filed: 12/25/22 21:37> Clinical Impression: Pelvic pain, Dysuria Disposition: HOME SELF-CARE Condition: Good Instructions (If sedation given, give patient instructions): Dysuria (ED) Prescriptions: Hyoscyamine Sulfate [Levsin] 0 mg PO Q4H PRN #24 tablet PRN Reason: Spasms Referrals: Ye Quijano MD [STAFF PHYSICIAN] - 1-2 days Maribell Link MD [STAFF PHYSICIAN] - 1-2 days
[2022-12-25 15:26] LABS: Appearance,Urine Clear (Clear); Bilirubin,Urine Negative (Negative); Blood,Urine Negative (Negative); Color,Urine Dark Yellow; Glucose,Urine (UA) Negative (Negative); Ketones,Urine Negative (Negative); Leukocyte Esterase,Urine Negative (Negative); Nitrite,Urine Negative (Negative); PH, Urine 5.5 (5.0-8.0); Protein,Urine Negative (Negative); Specific Gravity,Urine 1.005 (1.001-1.035); Urobilinogen,Urine <2.0 mg/dL (<2.0)
[2022-12-25 15:28] LABS: Basophils % (A) 0 %; Eosinophils # (A) 0.1 k/uL (0-0.7); Eosinophils % (A) 2 %; HGB 13.8 gm/dL (11.4-16.0); Lymphocytes # (A) 1.8 k/uL (1.0-4.8); Lymphocytes % (A) 39 %; MCH 27.7 pg (25.0-35.0); MCHC 34.5 g/dL (31.0-37.0); MCV 80.4 fL (80.0-100.0); Mean Platelet Volume 7.4; Monocytes # (A) 0.2 k/uL (0-1.0); Monocytes % (A) 4 %; Neutrophils # (A) 2.5 k/uL (1.3-7.7); Neutrophils % (A) 53 %; Platelet Count 301 k/uL (150-450); RBC 4.98 m/uL (3.80-5.40); RDW 12.5 % (11.5-15.5); WBC 4.7 k/uL (3.8-10.6)
[2022-12-25 16:14] LABS: ALT 17 U/L (4-34); AST 18 U/L (14-36); African American GFR (CKD) >90 (>60 ml/min/1.73 sqM); Albumin 4.5 g/dL (3.5-5.0); Alkaline Phosphatase 64 U/L (38-126); Anion Gap 11 mmol/L; Blood Urea Nitrogen 10 mg/dL (7-17); Calcium 9.4 mg/dL (8.4-10.2); Carbon Dioxide 22 mmol/L (22-30); Chloride 105 mmol/L (98-107); Glucose 117 mg/dL (74-99); Lipase 63 U/L (23-300); Non-African American GFR(CKD) >90 (>60 ml/min/1.73 sqM); Potassium 4.3 mmol/L (3.5-5.1); Sodium 138 mmol/L (137-145); Total Bilirubin 0.4 mg/dL (0.2-1.3); Total Protein 7.7 g/dL (6.3-8.2)
--- NOTE | 2022-12-25 18:06 | US ---
EXAMINATION TYPE: US kidneys/renal and bladder DATE OF EXAM: 12/25/2022 COMPARISON: 10/20/22. CT: 10/24/22 CLINICAL INDICATION: Female, 37 years old with history of pain, hematuria; pain and hematuria EXAM MEASUREMENTS: Right Kidney: 10.7 x 5.2 x 4.4 cm Left Kidney: 10.5 x 4.6 x 4.4 cm Right Kidney: No hydronephrosis or masses seen Left Kidney: No hydronephrosis or masses seen Bladder: wnl Bilateral Jets seen: No There is no evidence for hydronephrosis at this point in time. No nephrolithiasis is seen. No dashawn s are identified. The urinary bladder is anechoic. Bilateral ureteral jets are seen. IMPRESSION: No evidence for hydronephrosis or nephrolithiasis.
[2022-12-25] MEDS ORDERED: HYDROcodone/APAP 10-325MG 1 EACH TAB PO ONE (20:15)
--- NOTE | 2022-12-25 21:01 | US ---
EXAMINATION TYPE: US transvaginal DATE OF EXAM: 12/25/2022 COMPARISON: CT: 10/24/22 CLINICAL INDICATION: Female, 37 years old with history of pelvic pain; pelvic pain and urinating bloo d. Pt states she started having problems after ectopic pg in March 2022 that resulted in right fal lopian tube removal. TECHNIQUE: Transvaginal (TV). Date of LMP: 12/15/22 EXAM MEASUREMENTS: Uterus: 8.2 x 4.9 x 3.3 cm Endometrial Stripe: 0.4 cm Right Ovary: 3.1 x 1.9 x 1.7 cm Left Ovary: 3.2 x 1.9 x 1.8 cm 1. Uterus: Anteverted wnl 2. Endometrium: wnl 3. Right Ovary: dominant follicle seen 4. Left Ovary: dominant follicle seen Spectral, color and waveform doppler imaging shows good arterial and venous flow within the ovaries ; there is no evidence for ovarian torsion. 5. Bilateral Adnexa: wnl 6. Posterior cul-de-sac: wnl IMPRESSION: Ovarian follicles otherwise unremarkable study.
[2022-12-25] MEDS ORDERED: HYOSCYAMINE SULFATE 0.125 MG TAB PO STA (21:45)
[2022-12-25 22:00] VITALS: BP 116/77; PULSE 76
== END 2022-12-25 22:00 | disposition home or self-care (01) ==
LOC: EC 14:43
DX: R30.0 Dysuria (principal); R10.2 Pelvic and perineal pain; F12.90 Cannabis use, unspecified, uncomplicated; Z88.0 Allergy status to penicillin; Z91.040 Latex allergy status; Z88.8 Allergy status to other drugs, medicaments and biological substances
CPT/HCPCS: 36415; 76770; 76830; 80053; 81003; 81025; 83690; 85025; 93975; 99284

== ENCOUNTER 2023-08-18 09:52 | Inpatient (IN) | payer OTHER ==
--- NOTE | 2023-08-18 10:15 | ED ---
Abdominal Pain HPI - General Chief Complaint: Abdominal Pain Stated Complaint: kidney stone Time Seen by Provider: 08/18/23 09:58 Source: patient, RN notes reviewed Mode of arrival: ambulatory Limitations: no limitations - History of Present Illness Initial Comments: This is a 37-year-old female who presents to the emergency department for flank pain and abdominal pain. Symptoms started a couple of days ago. Reports a history of kidney stones and states that this feels the same. Also has blood in her urine. She has noticed that the pain seems to be moving down lower into the back and abdomen every time she urinates. She has nausea and no vomiting. MD Complaint: abdominal pain - Related Data Home Medications Medication Instructions Recorded Confirmed Dextroamphetamine/Amphetamine 20 mg PO DAILY 08/18/23 08/18/23 [Adderall] Allergies Allergy/AdvReac Type Severity Reaction Status Date / Time latex Allergy Swelling Verified 08/18/23 14:12 all over body sulfamethoxazole Allergy Rash/Hives Verified 08/18/23 14:12 [From Bactrim] trimethoprim [From Bactrim] Allergy Rash/Hives Verified 08/18/23 14:12 amoxicillin [From Augmentin] AdvReac Hallucinations Verified 08/18/23 14:12 as a child - see comment azithromycin AdvReac Hallucinations Verified 08/18/23 14:12 as a child clavulanic acid AdvReac Hallucinations Verified 08/18/23 14:12 [From Augmentin] as a child Review of Systems ROS Statement: Those systems with pertinent positive or pertinent negative responses have been documented in the HPI. ROS Other: All systems not noted in ROS Statement are negative. Past Medical History Past Medical History: No Reported History Additional Past Medical History / Comment(s): Obstetric history: She's had 2 live births, she's had one ectopic in the right fallopian tube for which she was treated with methotrexate. She also had a molar and a 17 week demise as well as several miscarriages. Kidney stones. History of Any Multi-Drug Resistant Organisms: None Reported Past Surgical History: Section Past Psychological History: ADD/ADHD Smoking Status: Vaper Past Alcohol Use History: Occasional Past Drug Use History: Marijuana - Past Family History Father Additional Family Medical History / Comment(s): Hep C, heroin user, at 44 General Exam Limitations: no limitations General appearance: alert, in no apparent distress Head exam: Present: atraumatic, normocephalic, normal inspection Respiratory exam: Present: normal lung sounds bilaterally. Absent: respiratory distress, wheezes, rales, rhonchi, stridor Cardiovascular Exam: Present: regular rate, normal rhythm, normal heart sounds. Absent: systolic murmur, diastolic murmur, rubs, gallop, clicks GI/Abdominal exam: Present: soft, tenderness (RLQ), normal bowel sounds. Absent: distended, guarding, rebound, rigid Back exam: Present: CVA tenderness (R). Absent: CVA tenderness (L) Neurological exam: Present: alert, oriented X3, CN II-XII intact Psychiatric exam: Present: normal affect, normal mood Skin exam: Present: warm, dry, intact, normal color. Absent: rash Course Vital Signs 08/18/23 08/18/23 08/18/23 10:01 11:10 13:38 Temperature 98.4 F Pulse Rate 96 96 79 Respiratory 20 20 18 Rate Blood Pressure 112/76 101/65 112/61 O2 Sat by Pulse 99 100 100 Oximetry 08/18/23 18:19 Temperature Pulse Rate 68 Respiratory 18 Rate Blood Pressure 128/80 O2 Sat by Pulse 100 Oximetry Medical Decision Making - Medical Decision Making This is a 37 year old female who presents to the emergency department for flank pain. Was pt. sent in by a medical professional or institution? @ -No Did you speak to anyone other than the patient for history? @ -No Did you review nursing and triage notes? @ -Yes, and I agree, it is accurate with regards to the patient's symptoms. Were old charts reviewed? @ -No Differential Diagnosis? @ -Differential Flank Pain: UTI, pyelonephritis, kidney stone, musculoskeletal, pancreatitis, cholecystitis, this is not meant to be an all-inclusive list. EKG interpreted by me (3pts min.)? @ -Not obtained X-rays interpreted by me (1pt min.)? @ -Not obtained CT interpreted by me (1pt min.)? @ -CT scan of the abdomen and pelvis obtained. My interpretation identifies no evidence of a ureteral calculus. U/S interpreted by me (1pt. min.)? @ -Gallbladder ultrasound obtained. My interpretation identifies no evidence of cholelithiasis. What testing was considered but not performed? (CT, X-rays, U/S, labs)? Why? @ -None What meds were considered but not given? Why? @ -None Did you discuss the management of the patient with other professionals? @ -Yes, Dr. Cheatham, who accepts the patient for admission. Did you reconcile home meds? @ -No Was smoking cessation discussed for >3mins.? @ -No Was critical care preformed (if so, how long)? @ -No Were there social determinants of health that impacted care today? How? (Homelessness, low income, unemployed, alcoholism, drug addiction, transportation, low edu. Level, literacy, decrease access to med. care, custodial, rehab)? @ -No Was there de-escalation of care discussed even if they declined? (Discuss DNR or withdrawal of care, Hospice)? @ -No What co-morbidities impacted this encounter? (DM, HTN, Smoking, COPD, CAD, Cancer, CVA, Hep., AIDS, mental health diagnosis, sleep apnea, morbid obesity)? @ -None Was patient admitted / discharged? @ -Admitted. Lab work demonstrates findings suggestive of pancreatitis with a lipase of 1407 and amylase of 236. Lab work was otherwise unremarkable. Urinalysis demonstrates moderate blood and moderate leukocyte esterase. CT scan of the abdomen and pelvis demonstrates slight asymmetric fullness of the right renal collecting system that may reflect a recently passed stone. No other acute process was identified. Given the pancreatitis, abdominal ultrasound was obtained. This revealed no acute process. Given the patient's intractable pain with pancreatitis, she was admitted to medicine for further management. She was actively urinating blood and passing several blood clots, consult placed for urology as well regarding the hematuria. Undiagnosed new problem with uncertain prognosis? @ -None Drug Therapy requiring intensive monitoring for toxicity (Heparin, Nitro, Insulin, Cardizem)? @ -None Were any procedures done? @ -None Diagnosis/symptom? @ -Pancreatitis, hematuria Acute, or Chronic, or Acute on Chronic? @ -Acute Uncomplicated (without systemic symptoms) or Complicated (systemic symptoms)? @ -Complicated Side effects of treatment? @ -None Exacerbation, Progression, or Severe Exacerbation] @ -Not applicable Poses a threat to life or bodily function? @ -Yes This case was discussed in detail with the attending ED physician, Dr. Lei. Presentation, findings, and treatment plan discussed in detail as well. - Lab Data Result diagrams: 08/18/23 10:27 08/18/23 10:27 Lab Results 08/18/23 08/18/23 08/18/23 Range/Units 10: 10: 10:27 WBC 7.5 (3.8-10.6) k/uL RBC 4.84 (3.80-5.40) m/uL Hgb 13.5 (11.4-16.0) gm/dL Hct 40.5 (34.0-46.0) % MCV 83.7 (80.0-100.0) fL MCH 28.0 (25.0-35.0) pg MCHC 33.5 (31.0-37.0) g/dL RDW 12.3 (11.5-15.5) % Plt Count 248 (150-450) k/uL MPV 6.9 Neutrophils % 68 % Lymphocytes % 22 % Monocytes % 4 % Eosinophils % 3 % Basophils % 1 % Neutrophils # 5.1 (1.3-7.7) k/uL Lymphocytes # 1.6 (1.0-4.8) k/uL Monocytes # 0.3 (0-1.0) k/uL Eosinophils # 0.2 (0-0.7) k/uL Basophils # 0.1 (0-0.2) k/uL Sodium (137-145) mmol/L Potassium (3.5-5.1) mmol/L Chloride (98-107) mmol/L Carbon Dioxide (22-30) mmol/L Anion Gap mmol/L BUN (7-17) mg/dL Creatinine (0.52-1.04) mg/dL Est GFR (CKD-EPI)AfAm (>60 ml/min/1.73 sqM) Est GFR (CKD-EPI)NonAf (>60 ml/min/1.73 sqM) Glucose (74-99) mg/dL Plasma Lactic Acid Wild (0.7-2.0) mmol/L Calcium (8.4-10.2) mg/dL Total Bilirubin (0.2-1.3) mg/dL AST (14-36) U/L ALT (4-34) U/L Alkaline Phosphatase (38-126) U/L Total Protein (6.3-8.2) g/dL Albumin (3.5-5.0) g/dL Amylase (30-110) U/L Lipase (23-300) U/L Urine Color Colorless Urine Appearance Clear (Clear) Urine pH 7.5 (5.0-8.0) Ur Specific Baldwin 1.001 (1.001-1.035) Urine Protein Negative (Negative) Urine Glucose (UA) Negative (Negative) Urine Ketones Negative (Negative) Urine Blood Moderate H (Negative) Urine Nitrite Negative (Negative) Urine Bilirubin Negative (Negative) Urine Urobilinogen <2.0 (<2.0) mg/dL Ur Leukocyte Esterase Moderate H (Negative) Urine RBC <1 (0-5) /hpf Urine WBC 3 (0-5) /hpf Ur Squamous Epith Cells <1 (0-4) /hpf Amorphous Sediment Rare H (None) /hpf Urine HCG, Qual Not Detected (Not Detectd) 08/18/23 08/18/23 Range/Units 10:27 10:27 WBC (3.8-10.6) k/uL RBC (3.80-5.40) m/uL Hgb (11.4-16.0) gm/dL Hct (34.0-46.0) % MCV (80.0-100.0) fL MCH (25.0-35.0) pg MCHC (31.0-37.0) g/dL RDW (11.5-15.5) % Plt Count (150-450) k/uL MPV Neutrophils % % Lymphocytes % % Monocytes % % Eosinophils % % Basophils % % Neutrophils # (1.3-7.7) k/uL Lymphocytes # (1.0-4.8) k/uL Monocytes # (0-1.0) k/uL Eosinophils # (0-0.7) k/uL Basophils # (0-0.2) k/uL Sodium 138 (137-145) mmol/L Potassium 4.1 (3.5-5.1) mmol/L Chloride 108 H (98-107) mmol/L Carbon Dioxide 23 (22-30) mmol/L Anion Gap 7 mmol/L BUN 10 (7-17) mg/dL Creatinine 0.55 (0.52-1.04) mg/dL Est GFR (CKD-EPI)AfAm >90 (>60 ml/min/1.73 sqM) Est GFR (CKD-EPI)NonAf >90 (>60 ml/min/1.73 sqM) Glucose 95 (74-99) mg/dL Plasma Lactic Acid Wild 0.7 (0.7-2.0) mmol/L Calcium 8.7 (8.4-10.2) mg/dL Total Bilirubin 0.3 (0.2-1.3) mg/dL AST 20 (14-36) U/L ALT 18 (4-34) U/L Alkaline Phosphatase 61 (38-126) U/L Total Protein 6.9 (6.3-8.2) g/dL Albumin 4.1 (3.5-5.0) g/dL Amylase 236 H (30-110) U/L Lipase 1407 H (23-300) U/L Urine Color Urine Appearance (Clear) Urine pH (5.0-8.0) Ur Specific Baldwin (1.001-1.035) Urine Protein (Negative) Urine Glucose (UA) (Negative) Urine Ketones (Negative) Urine Blood (Negative) Urine Nitrite (Negative) Urine Bilirubin (Negative) Urine Urobilinogen (<2.0) mg/dL Ur Leukocyte Esterase (Negative) Urine RBC (0-5) /hpf Urine WBC (0-5) /hpf Ur Squamous Epith Cells (0-4) /hpf Amorphous Sediment (None) /hpf Urine HCG, Qual (Not Detectd) - Radiology Data Radiology results: report reviewed, image reviewed Disposition Clinical Impression: Pancreatitis, Hematuria Disposition: ADMITTED IP TO THIS HOSP
[2023-08-18] MEDS: MORPHINE SULFATE 4 MG/ML SYRINGE IVP STA (10:30)
[2023-08-18] MEDS: SODIUM CHLORIDE 0.9% 1,000 ML IV STA (10:30)
[2023-08-18] MEDS: KETOROLAC 15 MG/ML 1 ML VIAL IVP STA (10:30)
[2023-08-18 10:48] LABS: Basophils # (A) 0.1 k/uL (0-0.2); Basophils % (A) 1 %; Eosinophils # (A) 0.2 k/uL (0-0.7); Eosinophils % (A) 3 %; HCT 40.5 % (34.0-46.0); HGB 13.5 gm/dL (11.4-16.0); Lymphocytes # (A) 1.6 k/uL (1.0-4.8); Lymphocytes % (A) 22 %; MCHC 33.5 g/dL (31.0-37.0); MCV 83.7 fL (80.0-100.0); Mean Platelet Volume 6.9; Monocytes # (A) 0.3 k/uL (0-1.0); Monocytes % (A) 4 %; Neutrophils # (A) 5.1 k/uL (1.3-7.7); Neutrophils % (A) 68 %; Platelet Count 248 k/uL (150-450); RBC 4.84 m/uL (3.80-5.40); RDW 12.3 % (11.5-15.5); WBC 7.5 k/uL (3.8-10.6)
[2023-08-18 11:07] LABS: ALT 18 U/L (4-34); AST 20 U/L (14-36); African American GFR (CKD) >90 (>60 ml/min/1.73 sqM); Albumin 4.1 g/dL (3.5-5.0); Alkaline Phosphatase 61 U/L (38-126); Amylase 236 U/L (30-110); Anion Gap 7 mmol/L; Blood Urea Nitrogen 10 mg/dL (7-17); Calcium 8.7 mg/dL (8.4-10.2); Carbon Dioxide 23 mmol/L (22-30); Chloride 108 mmol/L (98-107); Glucose 95 mg/dL (74-99); Lipase 1407 U/L (23-300); Non-African American GFR(CKD) >90 (>60 ml/min/1.73 sqM); Potassium 4.1 mmol/L (3.5-5.1); Sodium 138 mmol/L (137-145); Total Bilirubin 0.3 mg/dL (0.2-1.3); Total Protein 6.9 g/dL (6.3-8.2)
[2023-08-18] MEDS: HYDROmorphone 1 MG/ML 1 ML SYRINGE IVP STA (11:10)
[2023-08-18 11:27] LABS: Amorphous Sediment,Urine Rare /hpf; Appearance,Urine Clear (Clear); Bilirubin,Urine Negative (Negative); Blood,Urine Moderate (Negative); Color,Urine Colorless; Glucose,Urine (UA) Negative (Negative); Ketones,Urine Negative (Negative); Leukocyte Esterase,Urine Moderate (Negative); Nitrite,Urine Negative (Negative); PH, Urine 7.5 (5.0-8.0); Protein,Urine Negative (Negative); RBC,Urine <1 /hpf (0-5); Specific Gravity,Urine 1.001 (1.001-1.035); Squamous Epithelial Cell,Urine <1 /hpf (0-4); Urobilinogen,Urine <2.0 mg/dL (<2.0); WBC,Urine 3 /hpf (0-5)
--- NOTE | 2023-08-18 11:29 | CT ---
EXAMINATION TYPE: CT abdomen pelvis wo con DATE OF EXAM: 08/18/2023 COMPARISON: 10/24/2022 HISTORY: 37-year-old female Rt side flank pain. CT DLP: 310.1 mGycm. Automated exposure control for dose reduction was used. TECHNIQUE: Contiguous axial scanning of the abdomen and pelvis without IV contrast. Coronal and sagit latha reconstructions performed. FINDINGS: A normal-sized pericardial effusion. 4 mm left basilar pulmonary nodule unchanged suggesting a benign etiology. No pleural effusion. Noncontrast appearance of the liver, gallbladder, adrenal glands, spleen, and pancreas within normal limits. No nephrolithiasis or hydronephrosis is seen though there is mild asymmetric fullness of the right re nal collecting system. No dilated small bowel, free fluid, or free air. No mesenteric or retroperitoneal lymphadenopathy. Normal appendix. Scattered mild stool. No pericolonic inflammatory change. Bladder is urine distended. Uterus anteverted. Both ovaries are visualized. No abnormal fluid collect ion in the pelvis or pelvic lymphadenopathy. Bones: Osseous destructive process. IMPRESSION: 1. Slight asymmetric fullness of the right renal collecting system may reflect a recently passed sto ne in the correct clinical setting. 2. Otherwise, no nephrolithiasis or other acute process is seen.
--- NOTE | 2023-08-18 12:20 | US ---
EXAMINATION TYPE: US abdomen limited DATE OF EXAM: 08/18/2023 COMPARISON: CT 08/18/2023 US Renal - 12/25/2022 CLINICAL INDICATION: Female, 37 years old with history of Right sided abdominal pain and pancreatitis ;Abdominal pain with gross hematuria TECHNIQUE: Multiple sonographic images of the right upper quadrant are obtained. FINDINGS: EXAM MEASUREMENTS: Liver Length: 16.9 cm Gallbladder Wall: 0.2 cm CBD: 0.3 cm Right Kidney: 10.5 x 3.8 x 5.3 cm Pancreas: Pancreatic duct seen = 0.2 cm, within normal limits. Liver: wnl Gallbladder: wnl Evidence for sonographic Hammer's sign: No CBD: wnl Right Kidney: wnl IMPRESSION: No gallstones or biliary ductal dilatation. No specific abnormality seen in the right upper quadrant.
[2023-08-18] MEDS: ONDANSETRON 4 MG/2 ML VIAL IVP STA ×2 (12:26→13:41)
[2023-08-18] MEDS ORDERED: NALOXONE 0.4 MG/ML 1 ML VIAL IV PRN (12:48)
[2023-08-18] MEDS ORDERED: ACETAMINOPHEN TAB 325 MG TAB PO PRN (12:48)
[2023-08-18] MEDS: HYDROmorphone 0.5 MG/0.5 ML SYRINGE IVP STA (13:41)
[2023-08-18] MEDS: SODIUM CHLORIDE 0.9% 500 ML 500 ML IV STA (13:42)
[2023-08-18] MEDS: SODIUM CHLORIDE 0.9% 1,000 ML IV SCH (13:44)
[2023-08-18] MEDS: Dextroamphetamine/Amphetamine [Adderall] 20 MG Tablet PO SCH (15:38)
[2023-08-18] MEDS: HYDROcodone/APAP 5-325MG 1 EACH TAB PO PRN (20:26)
[2023-08-18] MEDS: KETOROLAC 15 MG/ML 1 ML VIAL IVP PRN (22:22)
[2023-08-18 22:38] LABS: Chol/HDL Ratio 2.63 Ratio; LDL Cholesterol,Calculated 74.9 mg/dL (0.0-131.0)
--- NOTE | 2023-08-18 23:54 | HP ---
HISTORY AND PHYSICAL CHIEF COMPLAINT: Abdominal pain. HISTORY OF PRESENT ILLNESS: This is a 37-year-old woman with the past medical history of urolithiasis, complaining of abdominal pain, mostly the abdominal pain in the lower part of the abdomen which is in the right lower quadrant. The patient also has hematuria. The patient had amylase and lipase increased, elevated suggestive of acute pancreatitis. The patient had a CAT scan of the abdomen and pelvis, which showed a symmetric fullness of the right renal collecting system reflect, recently passed stones. There is no history of fever, rigors, or chills at this time. PAST MEDICAL HISTORY: History of section, ADD, ADHD. The rest of the history and rest of the chart is also reviewed. HOME MEDICATIONS: Reviewed include Adderall. ALLERGIES: Reviewed and include latex. FAMILY HISTORY: No history of heart disease or stroke. SOCIAL HISTORY: History of vaping. Occasional alcohol, THC. REVIEW OF SYSTEMS: Fourteen-point review of systems negative except as mentioned earlier. PHYSICAL EXAMINATION: VITAL SIGNS: Pulse is 79, blood pressure 130/61, respirations 18. HEENT: Conjunctivae normal. NECK: No jugular venous distention. RESPIRATIONS: Breath sounds diminished at the bases. No rhonchi. No crackles. ABDOMEN: Soft, mild diffuse tenderness in the right lower quadrant. No guarding, no rigidity. No masses palpable. LEGS: No edema. No swelling. LABORATORY DATA: Reviewed. ASSESSMENT: 1. Right-sided abdominal pain, possibly acute urolithiasis with hematuria. 2. Elevated amylase, lipase, possible acute pancreatitis. 3. Attention deficit disorder, attention deficit hyperactive disorder. 4. History of THC. 5. History of ectopic . RECOMMENDATIONS AND DISCUSSION: This 37-year-old woman presented with multiple complex medical issues. At this time, I recommend to continue the current management and continue symptomatic treatment. Otherwise, Urology evaluation. The patient had hematuria, and amylase and lipase are elevated. We will repeat amylase, lipase. Prognosis guarded because of multiple complex medical issues and further recommendations to follow. MMODL / IJN: [id number] /
[2023-08-19] MEDS: PANTOPRAZOLE 40 MG/10 ML VIAL IV SCH (07:39)
[2023-08-19 08:43] LABS: Basophils # (A) 0.04 X 10*3/uL (0.00-0.10); Basophils % (A) 0.7 %; Eosinophils # (A) 0.17 X 10*3/uL (0.04-0.35); HCT 34.3 % (37.2-46.3); HGB 11.5 g/dL (12.0-15.0); Lymphocytes # (A) 1.67 X 10*3/uL (0.90-5.00); Lymphocytes % (A) 29.5 %; MCH 27.8 pg (27.0-32.0); MCHC 33.5 g/dL (32.0-37.0); MCV 82.9 FL (80.0-97.0); Mean Platelet Volume 9.5 FL (9.5-12.2); Monocytes # (A) 0.37 X 10*3/uL (0.20-1.00); Monocytes % (A) 6.5 %; NRBC Per 100 WBC 0 X 10*3/uL (0.00-0.01); Neutrophils % (A) 60.1 %; Platelet Count 217 X 10*3/uL (140-440); RBC 4.14 X 10*6/uL (4.10-5.20); RDW 12.5 % (11.5-14.5); WBC 5.66 X 10*3/uL (4.50-10.00)
[2023-08-19 08:59] LABS: ALT 11 U/L (8-44); AST 13 U/L (13-35); Albumin 3.7 g/dL (3.8-4.9); Albumin/Globulin Ratio 2.06 Ratio (1.60-3.17); Alkaline Phosphatase 48 U/L (41-126); Amylase 185 U/L (23-121); BUN/Creat Ratio 10.33 Ratio (12.00-20.00); Blood Urea Nitrogen 6.2 mg/dL (9.0-27.0); Calcium 8.2 mg/dL (8.7-10.3); Carbon Dioxide 21.8 mmol/L (21.6-31.8); Chloride 109 mmol/L (96-109); Globulin 1.8 g/dL (1.6-3.3); Glucose 101 mg/dL (70-110); Lipase 173 U/L (14-63); Potassium 4.2 mmol/L (3.5-5.5); Sodium 139 mmol/L (135-145); Total Bilirubin 0.3 mg/dL (0.3-1.2); Total Protein 5.5 g/dL (6.2-8.2)
[2023-08-19] MEDS: ONDANSETRON 4 MG/2 ML VIAL IVP PRN (09:59)
--- NOTE | 2023-08-19 12:48 | P.GSCN ---
History of Present Illness Consult date: 08/19/23 Reason for Consult: Gross hematuria History of present illness: This is a 37-year-old female presented to the hospital with right-sided flank p ain with radiation down to the groin and gross hematuria. It has been ongoing indicated for a few days. Denies any dysuria. Does have a previous history of kidney stones which did require stent in the past, and another kidney stone which she has passed spontaneously. In the ER she underwent a CT abdomen and pelvis that showed no evidence of obstructive stone or hydronephrosis, there was minimal fullness of the right renal pelvis. No known family history of malignancies. Indicated she was still having some gross hematuria last night and the pain has improved but she is having still some pain. Review of Systems - Constitutional Denies fever, Denies weight loss - Cardiovascular Denies chest pain, Denies shortness of breath - Respiratory Denies cough, Denies 7 - Gastrointestinal Reports abdominal pain, Reports nausea - Genitourinary Genitourinary: Reports flank pain, Reports hematuria - Integumentary Denies rash, Denies unusual bruising - Neurological Denies headaches, Denies syncope Past Medical History Past Medical History: No Reported History Additional Past Medical History / Comment(s): Obstetric history: She's had 2 live births, she's had one ectopic in the right fallopian tube for which she was treated with methotrexate. She also had a molar and a 17 week demise as well as several miscarriages. Kidney stones. History of Any Multi-Drug Resistant Organisms: None Reported Past Surgical History: Section Past Anesthesia/Blood Transfusion Reactions: No Reported Reaction Past Psychological History: ADD/ADHD Smoking Status: Vaper Past Alcohol Use History: Occasional Past Drug Use History: Marijuana - Past Family History Father Additional Family Medical History / Comment(s): Hep C, heroin user, at 44 Medications and Allergies Home Medications Medication Instructions Recorded Confirmed Type Dextroamphetamine/Amphetamine 20 mg PO DAILY 08/18/23 08/18/23 History [Adderall] Allergies Allergy/AdvReac Type Severity Reaction Status Date / Time latex Allergy Swelling Verified 08/18/23 14:12 all over body sulfamethoxazole Allergy Rash/Hives Verified 08/18/23 14:12 [From Bactrim] trimethoprim [From Bactrim] Allergy Rash/Hives Verified 08/18/23 14:12 amoxicillin [From Augmentin] AdvReac Hallucinations Verified 08/18/23 14:12 as a child - see comment azithromycin AdvReac Hallucinations Verified 08/18/23 14:12 as a child clavulanic acid AdvReac Hallucinations Verified 08/18/23 14:12 [From Augmentin] as a child Surgical - Exam Vital Signs Temp Pulse Resp BP Pulse Ox 98.4 F 96 20 112/76 99 08/18/23 10:01 08/18/23 10:01 08/18/23 10:01 08/18/23 10:01 08/18/23 10:01 - General moderate pain - Eyes normal ocular movement, no pale - ENT normal nares, normal mucosa - Respiratory normal expansion, normal respiratory effort - Abdomen Abdomen: soft, tender (right flank), no distended - Psychiatric oriented to time, oriented to person, oriented to place Results - Labs 08/19/23 05:33 08/19/23 05:33 Abnormal Lab Results - Last 24 Hours (Table) 08/18/23 08/19/23 08/19/23 Range/Units 10:27 05:33 05:33 Hgb 11.5 L (12.0-15.0) g/dL Hct 34.3 L (37.2-46.3) % BUN 6.2 L (9.0-27.0) mg/dL BUN/Creatinine Ratio 10.33 L (12.00-20.00) Ratio Calcium 8.2 L (8.7-10.3) mg/dL Total Protein 5.5 L (6.2-8.2) g/dL Albumin 3.7 L (3.8-4.9) g/dL HDL Cholesterol 61.90 H (40.00-60.00) mg/dL Amylase 185 H (23-121) U/L Lipase 173 H (14-63) U/L Diabetes panel 08/18/23 08/19/23 Range/Units 10:27 05:33 Sodium 139 (135-145) mmol/L Potassium 4.2 (3.5-5.5) mmol/L Chloride 109 (96-109) mmol/L Carbon Dioxide 21.8 (21.6-31.8) mmol/L BUN 6.2 L (9.0-27.0) mg/dL Creatinine 0.6 (0.6-1.5) mg/dL Glucose 101 (70-110) mg/dL Calcium 8.2 L (8.7-10.3) mg/dL AST 13 (13-35) U/L ALT 11 (8-44) U/L Alkaline Phosphatase 48 (41-126) U/L Total Protein 5.5 L (6.2-8.2) g/dL Albumin 3.7 L (3.8-4.9) g/dL Triglycerides 131.00 (0.00-149.00) mg/dL HDL Cholesterol 61.90 H (40.00-60.00) mg/dL Calcium panel 08/19/23 Range/Units 05:33 Calcium 8.2 L (8.7-10.3) mg/dL Albumin 3.7 L (3.8-4.9) g/dL Pituitary panel 08/19/23 Range/Units 05:33 Sodium 139 (135-145) mmol/L Potassium 4.2 (3.5-5.5) mmol/L Chloride 109 (96-109) mmol/L Carbon Dioxide 21.8 (21.6-31.8) mmol/L BUN 6.2 L (9.0-27.0) mg/dL Creatinine 0.6 (0.6-1.5) mg/dL Glucose 101 (70-110) mg/dL Calcium 8.2 L (8.7-10.3) mg/dL Adrenal panel 08/19/23 Range/Units 05:33 Sodium 139 (135-145) mmol/L Potassium 4.2 (3.5-5.5) mmol/L Chloride 109 (96-109) mmol/L Carbon Dioxide 21.8 (21.6-31.8) mmol/L BUN 6.2 L (9.0-27.0) mg/dL Creatinine 0.6 (0.6-1.5) mg/dL Glucose 101 (70-110) mg/dL Calcium 8.2 L (8.7-10.3) mg/dL Total Bilirubin 0.3 (0.3-1.2) mg/dL AST 13 (13-35) U/L ALT 11 (8-44) U/L Alkaline Phosphatase 48 (41-126) U/L Total Protein 5.5 L (6.2-8.2) g/dL Albumin 3.7 L (3.8-4.9) g/dL Assessment and Plan Assessment: 37-year-old female admitted to the hospital with pancreatitis, urology is consulted for gross hematuria. She has been having right-sided flank pain in association with a gross hematuria. Previous history of kidney stones. I reviewed her CT and will see any evidence of obstruction or stone there is minimal fullness of the right renal pelvis, given the flank pain and hematuria appearing concurrently most likely she is passed a stone. At this time no intervention from needed from urology standpoint, recommend continued pain cont rol. On review of images I do not see any evidence of hydronephrosis she will not benefit from a stent at this time.Flank pain may also be releated to her pancreatitis rather than kidney stone at this time -Follow-up as an outpatient for repeat urinalysis, if having persistent hematuria at that time then she will require cystoscopy
[2023-08-19] MEDS: HYDROmorphone 1 MG/ML 1 ML SYRINGE IVP PRN (14:17)
[2023-08-20 08:49] LABS: Basophils # (A) 0.02 X 10*3/uL (0.00-0.10); Basophils % (A) 0.5 %; Eosinophils # (A) 0.13 X 10*3/uL (0.04-0.35); HCT 35.3 % (37.2-46.3); HGB 11.9 g/dL (12.0-15.0); Lymphocytes # (A) 1.54 X 10*3/uL (0.90-5.00); Lymphocytes % (A) 35.4 %; MCH 27.5 pg (27.0-32.0); MCHC 33.7 g/dL (32.0-37.0); MCV 81.7 FL (80.0-97.0); Mean Platelet Volume 9.5 FL (9.5-12.2); Monocytes # (A) 0.31 X 10*3/uL (0.20-1.00); Monocytes % (A) 7.1 %; NRBC Per 100 WBC 0 X 10*3/uL (0.00-0.01); Neutrophils # (A) 2.34 X 10*3/uL (1.80-7.70); Neutrophils % (A) 53.8 %; Platelet Count 225 X 10*3/uL (140-440); RBC 4.32 X 10*6/uL (4.10-5.20); RDW 12.2 % (11.5-14.5); WBC 4.35 X 10*3/uL (4.50-10.00)
[2023-08-20 09:25] LABS: ALT 16 U/L (8-44); AST 15 U/L (13-35); Albumin 3.8 g/dL (3.8-4.9); Alkaline Phosphatase 49 U/L (41-126); BUN/Creat Ratio 7.33 Ratio (12.00-20.00); Blood Urea Nitrogen 4.4 mg/dL (9.0-27.0); Calcium 8.8 mg/dL (8.7-10.3); Carbon Dioxide 23.5 mmol/L (21.6-31.8); Chloride 106 mmol/L (96-109); Glucose 92 mg/dL (70-110); Potassium 4.4 mmol/L (3.5-5.5); Sodium 139 mmol/L (135-145); Total Bilirubin 0.3 mg/dL (0.3-1.2); Total Protein 5.8 g/dL (6.2-8.2)
[2023-08-20 09:33] LABS: Lipase 39 U/L (14-63)
--- NOTE | 2023-08-20 10:52 | P.PN ---
Subjective Progress Note Date: 08/19/23 Patient is a 36-year-old female with a past medical history of urolithiasis presents to ER with complaints of abdominal pain mainly in the upper abdomen and back pain. Patient was also having hematuria on admission. CT of abdomen pelvis showed slight asymmetric fullness of the right renal collecting system may deflect a recently passed stone in the correct clinical setting. Otherwise no nephrolithiasis or acute process seen. Ultrasound abdominal showed no gallstones or biliary ductal dilatation. No specific abnormality seen in the right upper quadrant. 08/19/2023 Patient is lying in the bed. Awake alert and oriented x 3. No complaints of chest pain. Abdominal pain is much improved. No further episodes of hematuria. Mild nausea. No episodes of vomiting. Was able to tolerate liquids. Laboratory data showed WBC 5.6 hemoglobin 11.5 and platelets 217. Electrolytes within normal limits. Lipase level came down to 173. Total cholesterol 163 triglycerides 131. Current medications reviewed. Objective - Vital Signs Vital signs: Vital Signs Temp 97.5 F L 08/19/23 08:00 Pulse 70 08/19/23 08:00 Resp 12 08/19/23 02:36 BP 126/84 08/19/23 08:00 Pulse Ox 100 08/19/23 08:00 FiO2 Intake & Output 08/18/23 08/19/23 08/19/23 18:59 06:59 18:59 Intake Total 90 Balance 90 Weight 54.431 kg Intake: Oral 90 Other: Voiding Method Toilet # Voids 3 - Exam PHYSICAL EXAMINATION: Patient is lying in the bed comfortably, no acute distress, awake alert and oriented.. HEENT: Normocephalic. Neck is supple. Pupils reactive. Nostrils clear. Oral cavity is moist. Neck reveals no JVD, carotid bruits, or thyromegaly. CHEST EXAMINATION: Trachea is central. Symmetrical expansion. Lung dewitt clear to auscultation and percussion. CARDIAC: Normal S1, S2 with no gallops. No murmurs ABDOMEN: Soft. Bowel sounds present. Mild epigastric tenderness. No flank tenderness. No organomegaly. No abdominal bruits. Extremities: reveal no edema. No clubbing or cyanosis Neurologically awake, alert, oriented x3 with well-coordinated movements. No focal deficits noted Skin: No rash or skin lesions. Psychiatric: Coperative. Nonsuicidal Musculoskeletal: No joint swelling or deformity. Normal range of motion. - Labs CBC & Chem 7: 08/20/23 05:38 08/20/23 05:38 Labs: Abnormal Lab Results - Last 24 Hours (Table) 08/18/23 08/19/23 08/19/23 Range/Units 10:27 05:33 05:33 Hgb 11.5 L (12.0-15.0) g/dL Hct 34.3 L (37.2-46.3) % BUN 6.2 L (9.0-27.0) mg/dL BUN/Creatinine Ratio 10.33 L (12.00-20.00) Ratio Calcium 8.2 L (8.7-10.3) mg/dL Total Protein 5.5 L (6.2-8.2) g/dL Albumin 3.7 L (3.8-4.9) g/dL HDL Cholesterol 61.90 H (40.00-60.00) mg/dL Amylase 185 H (23-121) U/L Lipase 173 H (14-63) U/L Assessment and Plan Assessment: Right-sided abdominal pain with hematuria. Possible urolithiasis and passed a stone. No stones noted in the CT of the abdomen and pelvis. Acute pancreatitis. No gallstones are duct abnormality noted. Liver enzymes and bilirubin level not elevated. ADD/ADHD History of ectopic DVT prophylax with heparin subcu Plan: Patient will be continued on IV hydration with normal saline. Current with pain management. Advance diet as tolerated. Patient was seen by urology. Minimal fullness of the right renal pelvis, given the flank pain and hematuria appearing concurrently most likely she passed a stone. No interventions recommended at this time. Recommends follow-up outpatient for repeat urinalysis if having persistent hematuria. Discussed with patient and her family at bedside in detail. Time with Patient: Greater than 30
[2023-08-20 11:14] VITALS: BP 115/75; PULSE 71; RESP 15; TEMP 98.6
[2023-08-20] MEDS: ONDANSETRON 4 MG TAB PO PRN (12:20)
--- NOTE | 2023-08-20 13:18 | XR ---
EXAMINATION TYPE: XR chest 1V DATE OF EXAM: 08/20/2023 COMPARISON: NONE HISTORY: Chest pain TECHNIQUE: Single frontal view of the chest is obtained. FINDINGS: There is no focal air space opacity, pleural effusion, or pneumothorax seen. The cardiac silhouette size is within normal limits. The osseous structures are intact. IMPRESSION: 1. No acute process.
== END 2023-08-20 15:00 | disposition home or self-care (01) | DRG 440 ==
LOC: EC 09:52 → 4SSUR 12:48
PROVIDERS: ADMIT Internal Medicine; ATTEND Internal Medicine
DX: K85.90 Acute pancreatitis without necrosis or infection, unspecified (principal); F90.9 Attention-deficit hyperactivity disorder, unspecified type; R31.0 Gross hematuria; Z87.442 Personal history of urinary calculi; Z87.59 Personal history of other complications of pregnancy, childbirth and the puerperium; Z98.891 History of uterine scar from previous surgery; Z91.040 Latex allergy status; Z88.2 Allergy status to sulfonamides; Z88.1 Allergy status to other antibiotic agents
CPT/HCPCS: 36415; 71045; 74176; 76705; 80053; 80061; 81001; 81025; 82150; 83605; 83690; 85025; 96361; 96374; 96375; 96376; 99285